=== PATIENT | female | born 1940 | race Caucasian/White ===

== ENCOUNTER 2019-07-12 05:31 | Inpatient (IN) | payer BC, OTHER ==
[~2019-07-12] VITALS: Ht 152.4 cm; Wt 67.0 kg
[~2019-07-12 05:31] MED LIST: ALPR0.5T7 PO; ATE50T GT; CLON0.1T PO; DILT120C45 PO; FLUO40CA PO; LIS20T PO; MULTLIQ36 OR; ZOLP12.564 PO
[2019-07-12 07:11] LABS: Urine Bacteria NONE SEEN /hpf (None Seen); Urine Blood 1+ /uL (Negative); Urine Specific Gravity 1.011 (1.001-1.035); Urine WBC 21 /hpf (0 - 5)
[2019-07-12] MEDS ORDERED: HYDROmorphone HCL 2 MG/ML VL IV ONE (07:30)
[2019-07-12] MEDS ORDERED: ONDANSETRON HCL 4 MG/2 ML VIAL IV ONE (07:30)
[2019-07-12 08:00] VITALS: BP 151/61
[2019-07-12] MEDS ORDERED: HYDROcodone-ACET 5/325MG TAB PO PRN (09:30)
[2019-07-12 09:41] LABS: Basophils # (auto) 0 uL; Basophils % (auto) 0.1 % (0.0-2.0); Eosinophils # (auto) 0 uL; Eosinophils % (auto) 0.1 % (0.0-7.0); Hematocrit 38.8 % (36.0-46.0); Hemoglobin 12.8 g/dL (12.2-16.2); Lymphocytes # (auto) 0.9 uL; Lymphocytes % (auto) 7.4 % (10.0-50.0); Mean Corpuscular Hemoglobin 29.4 pg (28.0-32.0); Mean Corpuscular Hgb Conc. 32.9 g/dL (32.0-36.0); Mean Corpuscular Volume 89.5 fL (80.0-100.0); Monocytes # (auto) 0.7 uL; Monocytes % (auto) 5.8 % (0.0-12.0); Neutrophils % (auto) 86.6 % (37.0-80.0); Nucleated Red Blood Cells % 0.1 %; Platelet Count (auto) 120 10^3/uL (140-450); Red Blood Cells 4.34 10^6/uL (4.0-5.20); White Blood Cell 11.5 10^3/uL (4.4-10.8)
[2019-07-12] MEDS ORDERED: ATENOLOL 25 MG TAB PO ONE (10:00)
[2019-07-12 10:05] LABS: Calcium 9.6 mg/dL (8.5-10.1); Potassium 4.1 mmol/L (3.5-5.1)
[2019-07-12 10:11] LABS: BUN/Creatinine Ratio 11.6
[2019-07-12 10:12] LABS: Cholesterol 155 mg/dL (< 200); INR 1.01 (0.9-1.15); Partial Thromboplastin Time 30.5 sec (23.64-32.05); Triglycerides 126 mg/dL (< 150)
[2019-07-12 10:14] LABS: HDL Cholesterol 32 mg/dL (40-59); LDL Cholesterol 111 mg/dL (< 100)
[2019-07-12] MEDS: cefTRIAXone 1GM/50ML D5W 50 ML IV SCH (10:41)
[2019-07-12] MEDS: SODIUM CHLORIDE 0.9% 1,000 ML IV SCH ×2 (10:41→22:20)
[2019-07-12] MEDS: FAMOTIDINE 20 MG TAB PO SCH (10:42)
[2019-07-12] MEDS: LISINOPRIL 20 MG TAB PO SCH (10:45)
[2019-07-12] MEDS ORDERED: NITROGLYCERIN 0.4 MG SL TAB SL PRN (12:00)
[2019-07-12] MEDS ORDERED: MORPHINE SULF INJ 2 MG/ML SYRINGE 1ML IV PRN (12:00)
[2019-07-12] MEDS ORDERED: IOHEXOL 300 MG/ML 100ML BOTTLE IJ ONE (12:09)
[2019-07-12] MEDS: ONDANSETRON HCL 4 MG/2 ML VIAL IV PRN (15:21)
--- NOTE | 2019-07-12 17:30 | NUR ---
Telemetry admit from ER Patient admitted to Telemetry unit after SBAR received. Patient oriented to primary RN, unit, room, bed, and unit policies regarding patient care and visiting hours. Patient now on continuous telemetry monitoring, tele box #12 and telemetry reading on arrival to unit is SR in the 70s. Bed in lowest, locked position with side rails up x2. Fall precautions in place and call light within reach. All questions and concerns addressed, patient verbalized understanding. Will continue to monitor Q1hr/PRN.
[2019-07-12 18:20] VITALS: BP 132/84
--- NOTE | 2019-07-12 18:40 | NUR ---
HEADACHE/PYREXIA Patient c/o headache pain 04/21 and also has a low grade fever of 100.4. train caller hospitalist, Kevin Victor VIDEO SURVEILLANCE TECHNICIAN, aware. New order received for Acetaminophen 500mg PO.
[2019-07-12] MEDS: ACETAMINOPHEN 500 MG TAB PO PRN (19:08)
[2019-07-12] MEDS: HYDROmorphone HCL 2 MG/ML VL IV PRN (19:16)
--- NOTE | 2019-07-12 19:30 | NUR ---
Opening Shift Note Assumed care of patient, awake and alert. No S/S of distress/SOB or pain. Visitor at bedside. Bed locked in lowest position, side rails upx2, call light within reach. Instructed on POC and to call for assist PRN, will continue to monitor for changes Q1hr and PRN.
--- NOTE | 2019-07-12 19:59 | NUR ---
IV insertion IV access obtained, via clean sterile technique by inserting 22 gauge catheter at right forearm after 1 attempt(s). IV secured properly. No trauma to site. Patient tolerated well.
[2019-07-12 21:24] VITALS: BP 145/72
[2019-07-13] MEDS: ACETAMINOPHEN 500 MG TAB PO PRN ×2 (04:00→12:09)
[2019-07-13] MEDS: ONDANSETRON HCL 4 MG/2 ML VIAL IV PRN ×2 (04:01→12:09)
[2019-07-13] MEDS: HYDROmorphone HCL 2 MG/ML VL IV PRN (04:34)
[2019-07-13 04:37] VITALS: BP 157/70
--- NOTE | 2019-07-13 05:32 | NUR ---
Rechecked temp, 99.8. Patient still complaining of headache 04/21. Tylenol and dilaudid given for pain relief. Will continue to monitor.
[2019-07-13] MEDS ORDERED: HYDR50TA15 PO (05:54)
[2019-07-13] MEDS ORDERED: ALLO100T PO (05:54)
[2019-07-13] MEDS ORDERED: FURO20TA3 PO (05:54)
[2019-07-13] MEDS ORDERED: SERT-274 PO (05:54)
[2019-07-13] MEDS ORDERED: OMEP20TA PO (05:54)
[2019-07-13 06:24] LABS: Basophils # (auto) 0 uL; Basophils % (auto) 0.2 % (0.0-2.0); Eosinophils # (auto) 0 uL; Eosinophils % (auto) 0.2 % (0.0-7.0); Hematocrit 32.9 % (36.0-46.0); Hemoglobin 11.7 g/dL (12.2-16.2); Lymphocytes # (auto) 0.7 uL; Lymphocytes % (auto) 7.6 % (10.0-50.0); Mean Corpuscular Hgb Conc. 35.5 g/dL (32.0-36.0); Mean Corpuscular Volume 87.4 fL (80.0-100.0); Monocytes # (auto) 0.8 uL; Monocytes % (auto) 8.1 % (0.0-12.0); Neutrophils % (auto) 83.9 % (37.0-80.0); Platelet Count (auto) 103 10^3/uL (140-450); Red Blood Cells 3.77 10^6/uL (4.0-5.20); Red Cell Distribution Width 13.9 % (11.8-14.3); White Blood Cell 9.6 10^3/uL (4.4-10.8)
[2019-07-13 06:40] LABS: Potassium 3.9 mmol/L (3.5-5.1)
[2019-07-13 06:47] LABS: BUN/Creatinine Ratio 11.7; Calcium 8.7 mg/dL (8.5-10.1)
--- NOTE | 2019-07-13 07:35 | NUR ---
Opening Shift Note Assumed care of patient, awake and alert. No S/S of distress/SOB or pain. Bed is in lowest position with 2x side rails up for safety and call light is within reach. Instructed on POC and to call for assist PRN, will continue to monitor for changes Q1hr and PRN.
[2019-07-13 08:00] VITALS: BP 151/61
[2019-07-13 08:52] VITALS: BP 151/61
[2019-07-13] MEDS: cefTRIAXone 1GM/50ML D5W 50 ML IV SCH (09:36)
[2019-07-13] MEDS: LISINOPRIL 20 MG TAB PO SCH (09:43)
[2019-07-13] MEDS: FAMOTIDINE 20 MG TAB PO SCH (09:43)
[2019-07-13] MEDS ORDERED: ATENOLOL 25 MG TAB PO SCH (10:00)
--- NOTE | 2019-07-13 11:03 | NUR ---
PAGED Patient requesting something for her anxiety and would like Hydralazine added to her scheduled medications as it is one of her normal home medications, "it really helps to bring my blood pressure down". Dr. Fuentes paged, awaiting call back.
[2019-07-13] MEDS: SODIUM CHLORIDE 0.9% 1,000 ML IV SCH (11:55)
[2019-07-13] MEDS ORDERED: SERTRALINE HCL 50 MG TAB PO SCH (12:00)
[2019-07-13] MEDS ORDERED: hydrALAZINE HCL 25 MG TAB PO SCH (12:00)
--- NOTE | 2019-07-13 12:15 | NUR ---
AWARE Return call from Dr. Fuentes, new orders received.
[2019-07-13 13:00] VITALS: BP 151/50
--- NOTE | 2019-07-13 15:17 | NUR ---
BERRY Per Dr. Fuentes, patient to be discharged home with berry catheter as patient is scheduled for urological procedure with Dr. Schaefer tomorrow. Patient aware, states she's "ok with that but I just don't want it to be the leg catheter".
--- NOTE | 2019-07-13 16:04 | NUR ---
Assessment Pt is a 79 yr old alert and oriented female. 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 Pt was very frustrated that she has to be discharged from our facility to go into [facility] outpatient clinic to get the procedure done. Pt seemed very distressed over the situation. SW asked how she is handling everything emotionally. Pt stated that she isnt doing very well. SW asked pt if she would like to discuss some of her thoughts with the SW. Pt declined offer. SW asked if she had family and friends that she could talk with that are supportive. Pt stated that her live-in caregiver and POA, Araceli Farris, has been very helpful and supportive. SW asked pt if she would be interested in receiving any information for support groups in the community that are going through similar situations. Pt declined. Pts caregiver is her point of contact at [phone]. Pt ambulates with the assistance of a walker. Pts caregiver helps with cooking and cleaning. Pt can independently complete ADLs using a walker and shower chair. Pt stated that Dr Ho is her Primary. Pt states that she has an advanced directive on file at [facility] naming Araceli Farris as her POA. Pts caregiver will offer transportation upon d/c. No other needs or concerns at this time Addendum: 07/13/19 at 1604 by STEVENSON RODRIGEZ Amended: Links added.
[2019-07-13 17:00] VITALS: BP 117/67
--- NOTE | 2019-07-13 17:55 | NUR ---
DISCHARGE Discharge instructions given as ordered. Encouraged to follow up with PMD and Urology, Dr. Schaefer, tomorrow for scheduled procedure at [facility]. All questions and concerns addressed, patient verbalized understanding. Medication reconciliation form completed and copy given to patient. IV removed with catheter intact and pressure dressing applied. Jansen catheter left intact per MD's recommendation. Telemetry unit returned to ICU. Patient taken to vehicle via wheelchair with all personal belongings, accompanied by staff and family member. No distress noted at time of departure.
== END 2019-07-13 17:55 | disposition home or self-care (01) | DRG 687 ==
LOC: EDBD 05:31 → ER 05:33 → TELE 05:34 → TELE-EAST 17:33
PROVIDERS: ADMIT Nurse Practitioner Acute Care; ATTEND Hospitalist
DX: C67.9 Malignant neoplasm of bladder, unspecified (principal); N39.0 Urinary tract infection, site not specified; R33.9 Retention of urine, unspecified; I10 Essential (primary) hypertension; J44.9 Chronic obstructive pulmonary disease, unspecified; G89.29 Other chronic pain; M54.5 Low back pain; R01.1 Cardiac murmur, unspecified; F32.9 Major depressive disorder, single episode, unspecified; E78.00 Pure hypercholesterolemia, unspecified; I25.10 Atherosclerotic heart disease of native coronary artery without angina pectoris; N99.3 Prolapse of vaginal vault after hysterectomy; R33.8 Other retention of urine; Z79.891 Long term (current) use of opiate analgesic; Z82.49 Family history of ischemic heart disease and other diseases of the circulatory system; Z85.51 Personal history of malignant neoplasm of bladder; Z85.828 Personal history of other malignant neoplasm of skin; Z88.5 Allergy status to narcotic agent; Z88.8 Allergy status to other drugs, medicaments and biological substances; Z79.01 Long term (current) use of anticoagulants; Z90.49 Acquired absence of other specified parts of digestive tract; Z90.89 Acquired absence of other organs
CPT/HCPCS: 36415; 71260; 74176; 80048; 80061; 81001; 83615; 84443; 85025; 85610; 85730; 87086; 87088; 87186; 93306; 96365; 96375; G0378; J0696; J2405

== ENCOUNTER 2019-08-26 16:02 | Inpatient (IN) | payer OTHER ==
[~2019-08-26] VITALS: Ht 160 cm; Wt 59.2 kg
[~2019-08-26 16:02] MED LIST changes: +ALLO100T PO; -ALPR0.5T7 PO; -FLUO40CA PO; +FURO20TA3 PO; +HYDR50TA15 PO; +OMEP20TA PO; +SERT-274 PO; -ZOLP12.564 PO
[2019-08-26] MEDS ORDERED: ACETAMINOPHEN 500 MG TAB PO ONE (16:15)
[2019-08-26 17:29] LABS: Albumin 3.6 g/dL (3.4-5.0); BUN/Creatinine Ratio 18.3; Calcium 9.2 mg/dL (8.5-10.1); Potassium 3.7 mmol/L (3.5-5.1)
[2019-08-26 17:32] LABS: Bilirubin, Total 0.8 mg/dL (0.2-1.0); Total Protein 8.5 g/dL (6.4-8.2)
[2019-08-26 17:34] LABS: Basophils # (auto) 0.1 uL; Basophils % (auto) 0.5 % (0.0-2.0); Eosinophils # (auto) 0 uL; Hematocrit 38.6 % (36.0-46.0); Hemoglobin 12.9 g/dL (12.2-16.2); Lymphocytes # (auto) 0.6 uL; Lymphocytes % (auto) 3.9 % (10.0-50.0); Mean Corpuscular Hemoglobin 29.7 pg (28.0-32.0); Mean Corpuscular Hgb Conc. 33.5 g/dL (32.0-36.0); Mean Corpuscular Volume 88.6 fL (80.0-100.0); Monocytes # (auto) 0.9 uL; Monocytes % (auto) 6.3 % (0.0-12.0); Neutrophils # (auto) 13.4 uL; Neutrophils % (auto) 89.3 % (37.0-80.0); Nucleated Red Blood Cells % 0.1 %; Platelet Count (auto) 118 10^3/uL (140-450); Red Blood Cells 4.35 10^6/uL (4.0-5.20)
[2019-08-26 17:51] LABS: Magnesium 1.9 mg/dL (1.6-2.6)
[2019-08-26 21:28] LABS: Urine Bacteria MANY /hpf (None Seen); Urine Blood Negative /uL (Negative); Urine Mucus FEW (None Seen); Urine Specific Gravity 1.017 (1.001-1.035); Urine WBC 10 /hpf (0 - 5)
[2019-08-26] MEDS ORDERED: HYDROcodone-ACET 5/325MG TAB PO PRN (22:30)
[2019-08-26] MEDS ORDERED: LEVOFLOXACIN 250MG 50 ML IV ONE (22:30)
--- NOTE | 2019-08-26 23:09 | NUR ---
Admission Note Pt admitted to room 204 in stable condition. No s/s of any distress noted at this time. Pt oriented to room and procedures. Pt also oriented to call light. Pt verbalizes understanding and demonstrates use of call light. Pt states that she is hard of hearing and does not have hearing aids. She further states that she does not have her glasses here with her. Pt in ISO for hx ESBL urine and is with berry cath. MORTGAGE FIELD INSPECTOR reported that it was placed for bladder distention/ urinary retention. Bed is low, wheels are locked, and call light is with in reach. Bed alarm is set for pt safety.
[2019-08-27] MEDS ORDERED: LEVOFLOXACIN 250MG 50 ML IV SCH
[2019-08-27] MEDS: TEMAZEPAM 15 MG CAP PO PRN (00:55)
[2019-08-27] MEDS: ONDANSETRON HCL 4 MG/2 ML VIAL IV PRN ×3 (00:55→15:37)
[2019-08-27] MEDS: ACETAMINOPHEN 325 MG TAB PO PRN ×2 (00:56→18:52)
--- NOTE | 2019-08-27 00:56 | NUR ---
Pt reporting pain 10/10, left flank pain. Pt has Tylenol ordered and will call Hospitalist and notify of pt pain.
[2019-08-27 05:00] VITALS: BP 129/52
[2019-08-27 05:18] LABS: Basophils # (auto) 0 uL; Basophils % (auto) 0.1 % (0.0-2.0); Eosinophils # (auto) 0 uL; Eosinophils % (auto) 0.1 % (0.0-7.0); Hematocrit 35.7 % (36.0-46.0); Hemoglobin 12.1 g/dL (12.2-16.2); Lymphocytes # (auto) 1.1 uL; Lymphocytes % (auto) 9.3 % (10.0-50.0); Mean Corpuscular Hgb Conc. 33.8 g/dL (32.0-36.0); Mean Corpuscular Volume 88.7 fL (80.0-100.0); Monocytes # (auto) 0.9 uL; Monocytes % (auto) 8.1 % (0.0-12.0); Neutrophils # (auto) 9.6 uL; Neutrophils % (auto) 82.4 % (37.0-80.0); Platelet Count (auto) 95 10^3/uL (140-450); Red Blood Cells 4.03 10^6/uL (4.0-5.20); Red Cell Distribution Width 14.5 % (11.8-14.3); White Blood Cell 11.7 10^3/uL (4.4-10.8)
[2019-08-27] MEDS ORDERED: [UNRECOGNIZED DRUG - CODE] PO (05:31)
--- NOTE | 2019-08-27 05:32 | NUR ---
Pt is c/o pain and states that she takes Oxycodone 10/325mg PO Q6hrs prn at home. Will call hospitalist.
[2019-08-27 05:33] LABS: BUN/Creatinine Ratio 19.9; Calcium 9.1 mg/dL (8.5-10.1); Potassium 3.9 mmol/L (3.5-5.1)
[2019-08-27] MEDS: PANTOPRAZOLE 40 MG TAB PO SCH (06:14)
[2019-08-27] MEDS: OXYCODONE W/ ACETAMINOPHEN 5/325MG TABLET PO PRN ×4 (06:40→20:49)
[2019-08-27] MEDS ORDERED: PANTOPRAZOLE 40 MG TAB PO SCH (07:00)
--- NOTE | 2019-08-27 08:00 | NUR ---
Opening Shift Note Assumed care of patient, awake and alert. No S/S of distress/SOB, abdominal pain /10. Instructed on POC and to call for assist PRN, will continue to monitor for changes Q1hr and PRN.
[2019-08-27 08:39] VITALS: BP 119/56
[2019-08-27] MEDS: DILTIAZEM HCL 120MG ER CAP PO SCH (09:57)
[2019-08-27] MEDS: ATENOLOL 50 MG TAB PO SCH (09:57)
[2019-08-27] MEDS: ALLOPURINOL 100 MG TAB PO SCH (09:58)
[2019-08-27] MEDS ORDERED: hydrALAZINE HCL 25 MG TAB PO SCH (10:00)
[2019-08-27] MEDS ORDERED: FUROSEMIDE 20 MG TAB PO SCH (10:00)
[2019-08-27] MEDS: SERTRALINE HCL 50 MG TAB PO SCH (10:17)
[2019-08-27] MEDS ORDERED: ERTAPENEM SOD INJ 1 GM in SODIUM CHL 0.9% 50 ML IV SCH (12:00)
[2019-08-27] MEDS ORDERED: SOD CHL 0.45% 1,000 ML IV ONE (12:00)
[2019-08-27] MEDS: hydrALAZINE HCL 25 MG TAB PO SCH ×2 (12:15→22:18)
[2019-08-27 13:00] VITALS: BP 93/42
[2019-08-27] MEDS: ERTAPENEM IV SCH (13:32)
[2019-08-27] MEDS: NS 0.9% IV SCH (13:32)
[2019-08-27 16:38] VITALS: BP 154/67
--- NOTE | 2019-08-27 19:50 | NUR ---
Opening Shift Note Assumed care of patient, awake and alert. No S/S of distress or SOB. Instructed on POC and to call for assist PRN. Bed locked in lowest position, bed rails up X2, call light within reach, fall precautions in place. Will continue to monitor for changes Q1hr and PRN. Signed: 08/27/19 at 2358 by JASWANT SHEEHAN SN <Co-Signature Required> Co-Signed: 08/27/19 at 8 by KENIA GUTIERREZ OCA, RN
[2019-08-27 22:00] VITALS: BP 116/54
[2019-08-27] MEDS: SENNA 8.6 MG TAB PO SCH (22:17)
[2019-08-28] MEDS: ONDANSETRON HCL 4 MG/2 ML VIAL IV PRN ×3 (00:45→23:58)
[2019-08-28] MEDS: OXYCODONE W/ ACETAMINOPHEN 5/325MG TABLET PO PRN ×4 (03:48→23:58)
[2019-08-28 05:00] VITALS: BP 122/47
[2019-08-28 05:32] LABS: Basophils # (auto) 0 uL; Basophils % (auto) 0.1 % (0.0-2.0); Eosinophils # (auto) 0 uL; Eosinophils % (auto) 0.1 % (0.0-7.0); Hemoglobin 11.5 g/dL (12.2-16.2); Lymphocytes # (auto) 0.7 uL; Lymphocytes % (auto) 6.5 % (10.0-50.0); Mean Corpuscular Hemoglobin 29.8 pg (28.0-32.0); Mean Corpuscular Hgb Conc. 33.8 g/dL (32.0-36.0); Mean Corpuscular Volume 88.1 fL (80.0-100.0); Monocytes # (auto) 1.1 uL; Monocytes % (auto) 9.9 % (0.0-12.0); Neutrophils # (auto) 9.2 uL; Neutrophils % (auto) 83.4 % (37.0-80.0); Platelet Count (auto) 98 10^3/uL (140-450); Red Blood Cells 3.86 10^6/uL (4.0-5.20); Red Cell Distribution Width 14.4 % (11.8-14.3); White Blood Cell 11.1 10^3/uL (4.4-10.8)
[2019-08-28 06:10] LABS: BUN/Creatinine Ratio 18.9; Calcium 8.8 mg/dL (8.5-10.1); Potassium 3.3 mmol/L (3.5-5.1)
[2019-08-28] MEDS: PANTOPRAZOLE 40 MG TAB PO SCH (06:29)
--- NOTE | 2019-08-28 07:30 | NUR ---
Opening Shift Note Assumed care of patient, awake and alert. No S/S of distress or SOB. Instructed on POC and to call for assist PRN. Bed locked in lowest position, bed rails up X2, call light within reach, fall precautions in place. Will continue to monitor for changes Q1hr and PRN.
--- NOTE | 2019-08-28 08:30 | NUR ---
PATIENT REFUSING AMBULATION WITH PT. EDUCATED PATIENT IMPORTANCE OF AMBULATING. PATIENT VERBALIZED UNDERSTANDING. PATIENT STILL REFUSING Addendum: 08/28/19 at 1315 by LETICIA WOOD RN RN Amended: Links added.
[2019-08-28 09:00] VITALS: BP 132/55
[2019-08-28] MEDS: ERTAPENEM IV SCH (09:25)
[2019-08-28] MEDS: NS 0.9% IV SCH (09:25)
[2019-08-28] MEDS: DILTIAZEM HCL 120MG ER CAP PO SCH (09:25)
[2019-08-28] MEDS: ATENOLOL 50 MG TAB PO SCH (09:26)
[2019-08-28] MEDS: hydrALAZINE HCL 25 MG TAB PO SCH ×2 (09:26→22:50)
[2019-08-28] MEDS: SERTRALINE HCL 50 MG TAB PO SCH (09:27)
[2019-08-28] MEDS: ALLOPURINOL 100 MG TAB PO SCH (09:29)
[2019-08-28] MEDS ORDERED: ENOXAPARIN SOD 40 MG/0.4 ML SYRINGE SC SCH (10:00)
--- NOTE | 2019-08-28 10:53 | NUR ---
ATTEMPTED PT EVAL BUT PT REFUSED. WILL TRY AGAIN LATER
[2019-08-28] MEDS ORDERED: PROMETHAZINE HCL 25 MG/ML 1ML IV PRN (11:30)
--- NOTE | 2019-08-28 12:11 | NUR ---
Attempted PT eval again, pt refused x2 today, will try again tomorrow
[2019-08-28 13:00] VITALS: BP 93/38
[2019-08-28] MEDS: ACETAMINOPHEN 325 MG TAB PO PRN (15:00)
[2019-08-28 17:00] VITALS: BP 127/57
[2019-08-28 21:39] VITALS: BP 128/51
[2019-08-28] MEDS: SENNA 8.6 MG TAB PO SCH ×2 (22:00→22:50)
[2019-08-29] MEDS: TEMAZEPAM 15 MG CAP PO PRN ×2 (00:35→23:41)
[2019-08-29 04:34] VITALS: BP 103/51
[2019-08-29] MEDS: PANTOPRAZOLE 40 MG TAB PO SCH (06:09)
[2019-08-29 09:00] VITALS: BP 136/74
[2019-08-29] MEDS: SERTRALINE HCL 50 MG TAB PO SCH (10:44)
[2019-08-29] MEDS: ERTAPENEM IV SCH (10:44)
[2019-08-29] MEDS: NS 0.9% IV SCH (10:44)
[2019-08-29] MEDS: ALLOPURINOL 100 MG TAB PO SCH (10:45)
[2019-08-29] MEDS: ATENOLOL 50 MG TAB PO SCH (10:45)
[2019-08-29] MEDS: DILTIAZEM HCL 120MG ER CAP PO SCH (10:45)
[2019-08-29] MEDS: hydrALAZINE HCL 25 MG TAB PO SCH ×2 (10:46→21:59)
[2019-08-29] MEDS: OXYCODONE W/ ACETAMINOPHEN 5/325MG TABLET PO PRN ×3 (10:46→19:57)
[2019-08-29] MEDS: ONDANSETRON HCL 4 MG/2 ML VIAL IV PRN ×3 (11:12→19:57)
--- NOTE | 2019-08-29 11:31 | NUR ---
PATIENT REFUSING AMBULATION WITH PT. EDUCATED PATIENT IMPORTANCE OF AMBULATING. PATIENT VERBALIZED UNDERSTANDING. PATIENT STILL REFUSING Addendum: 08/29/19 at 1131 by LETICIA WOOD RN RN Amended: Links added.
--- NOTE | 2019-08-29 12:05 | NUR ---
LAB RECEIVED PHONE CALL FROM MICROBIOLOGY RE: PATIENT POSITIVE FOR ESBL ECOLI IN THE URINE. WILL NOTIFY
--- NOTE | 2019-08-29 12:30 | NUR ---
PATIENT REFUSING AMBULATION WITH PT. EDUCATED PATIENT IMPORTANCE OF AMBULATING. PATIENT VERBALIZED UNDERSTANDING. PATIENT STILL REFUSING Addendum: 08/29/19 at 1558 by LETICIA WOOD RN RN Amended: Links added.
[2019-08-29 13:00] VITALS: BP 117/45
--- NOTE | 2019-08-29 13:20 | NUR ---
MD ROUNDS DR BATISTA DISCUSSING POC WITH PATIENT. NEW ORDERS RECEIVED/CARRIED OUT. WILL CONTINUE TO MONITOR
[2019-08-29] MEDS ORDERED: POTASSIUM EFFERVESENT TAB 25 MEQ PO ONE (14:15)
--- NOTE | 2019-08-29 15:20 | NUR ---
IV removal IV DC'd with clean sterile technique, catheter fully intact. Pressure dressing applied to site. Patient tolerated well. IV insertion IV access obtained, via clean sterile technique by inserting 22 gauge catheter at [facility] after 1 attempt(s). IV secured properly. No trauma to site. Patient tolerated well.
--- NOTE | 2019-08-29 15:59 | NUR ---
PATIENT REFUSING AMBULATION WITH PT. EDUCATED PATIENT IMPORTANCE OF AMBULATING. PATIENT VERBALIZED UNDERSTANDING. PATIENT STILL REFUSING Addendum: 08/29/19 at 1559 by LETICIA WOOD RN RN Amended: Links added.
[2019-08-29 17:00] VITALS: BP 139/96
[2019-08-29 21:35] VITALS: BP 155/72
[2019-08-29] MEDS: SENNA 8.6 MG TAB PO SCH (21:59)
[2019-08-29] MEDS: POTASSIUM EFFERVESENT TAB 25 MEQ PO SCH (21:59)
[2019-08-29] MEDS: CHOLESTYRAMINE 4 GM POWDER PO SCH (23:40)
[2019-08-30] MEDS: OXYCODONE W/ ACETAMINOPHEN 5/325MG TABLET PO PRN ×2 (04:00→10:45)
[2019-08-30 04:30] VITALS: BP 163/73
[2019-08-30 05:05] LABS: Basophils # (auto) 0 uL; Basophils % (auto) 0.2 % (0.0-2.0); Eosinophils # (auto) 0.1 uL; Eosinophils % (auto) 1.4 % (0.0-7.0); Hematocrit 37.2 % (36.0-46.0); Hemoglobin 12.6 g/dL (12.2-16.2); Lymphocytes # (auto) 1.2 uL; Lymphocytes % (auto) 13.1 % (10.0-50.0); Mean Corpuscular Hemoglobin 30.2 pg (28.0-32.0); Mean Corpuscular Volume 88.9 fL (80.0-100.0); Monocytes # (auto) 0.8 uL; Monocytes % (auto) 8.8 % (0.0-12.0); Neutrophils % (auto) 76.5 % (37.0-80.0); Nucleated Red Blood Cells % 0.1 %; Platelet Count (auto) 146 10^3/uL (140-450); Red Blood Cells 4.18 10^6/uL (4.0-5.20); Red Cell Distribution Width 14.1 % (11.8-14.3); White Blood Cell 9.1 10^3/uL (4.4-10.8)
[2019-08-30 05:18] LABS: INR 1.13 (0.9-1.15); Partial Thromboplastin Time 33.5 sec (23.64-32.05)
[2019-08-30 05:24] LABS: Calcium 9.3 mg/dL (8.5-10.1); Potassium 4.1 mmol/L (3.5-5.1)
[2019-08-30 05:27] LABS: BUN/Creatinine Ratio 12.7
[2019-08-30] MEDS: PANTOPRAZOLE 40 MG TAB PO SCH (05:56)
--- NOTE | 2019-08-30 07:30 | NUR ---
Opening Shift Note RECEIVED REPORT FROM NOC RN. Assumed care of patient, awake and alert. No S/S of distress/SOB or pain. BED IN LOWEST, LOCKED POSITION WITH SIDERAILS UP x2 AND CALL LIGHT WITHIN REACH. Instructed on POC and to call for assist PRN, will continue to monitor for changes Q1hr and PRN.
[2019-08-30 09:00] VITALS: BP 145/58
--- NOTE | 2019-08-30 09:27 | NUR ---
HUGO Quinonez from [facility] called and stated they will set up IV infusion but pt will need [facility] .
[2019-08-30] MEDS ORDERED: ERTAPENEM GM in SODIUM CHL 0.9% 50 ML IV SCH ×4 (10:00)
[2019-08-30] MEDS: POTASSIUM EFFERVESENT TAB 25 MEQ PO SCH (10:15)
[2019-08-30] MEDS: DILTIAZEM HCL 120MG ER CAP PO SCH (10:15)
[2019-08-30] MEDS: SERTRALINE HCL 50 MG TAB PO SCH (10:16)
[2019-08-30] MEDS: hydrALAZINE HCL 25 MG TAB PO SCH (10:16)
[2019-08-30] MEDS: ATENOLOL 50 MG TAB PO SCH (10:16)
[2019-08-30] MEDS: ALLOPURINOL 100 MG TAB PO SCH (10:16)
[2019-08-30] MEDS: ONDANSETRON HCL 4 MG/2 ML VIAL IV PRN (10:45)
[2019-08-30] MEDS: CHOLESTYRAMINE 4 GM POWDER PO SCH (11:29)
--- NOTE | 2019-08-30 11:46 | NUR ---
Nutrition Assessment Notes please see attached link for complete assessment Est. Needs based on BW (59 kg): 8159-4438 kcal (25-30 kcal/kgBW), 59-64 gms pro (1.0-1.1 gms/kgBW). Will continue to monitor pertinent labs and reassess nutrient need prn Addendum: 08/30/19 at [address] Amended: Links added.
--- NOTE | 2019-08-30 12:04 | NUR ---
D/C Planning Per consult for home health physical therapy and IV abx ertapenem 1 gm daily via MID line for 14 days. DX ESBL Ecoli. [employer] Reading Teacher Arminda will be working on IV abx. Contact [facility] Ph:) Fax:) faxed medical records. Per intake Vania from [facility] referral has been received and patient will be seen tomorrow. Vania advised me infusion company has contact her and will be delivering medication to patients home. Provided Patient with information regarding home health iv abx and physical therapy. Patient states her friend Araceli BrodyNoe will help her with IV abx. Patient verbalize understanding d/c plan. Informed JAKE Schaefer. Addendum: 08/30/19 at 1227 by ЮЛИЯ HEBERT Amended: Links added.
[2019-08-30 13:00] VITALS: BP 121/57
--- NOTE | 2019-08-30 13:25 | NUR ---
PICC NURSE TO PLACE MIDLINE FOR HOME ANTIBIOTICS.
--- NOTE | 2019-08-30 14:30 | NUR ---
Midline Placement: Patient educated on need for midline placement. All risks and benefits explained and all questions and concerns addresses prior to procedure. 18g/10cm midline inserted via left cephalic vein using Ultrasound. Sterile technique utilized. Blood return obtained from lumen and flushed easily with NS using proper technique. Midline secured with saline lock; biodisc and occlusive dressing applied. Primary RN notified. Midline lot #[id number]
--- NOTE | 2019-08-30 14:34 | NUR ---
assessment Patient is a 79 year old female who is alert and oriented. Patients cognitive abilities are intact. Prior to admission patient lived home with her friend and caregiver and functioned with assistance. Per patient she will return home to her prior living arrangements post discharge and her caregiver Araceli will transport her home. Patient is aware that she needs home IV ABX. Araceli patients caregiver can be taught to give ABX. Patients PCP is Dr Schaefer. Patient feels safe returning home on discharge. Arminda machine adjuster leader case trim and Falguni KHAN1 will satisfy ABX order. I informed patient she has a right to speak to a vp digital marketing social media and crm regarding all care. I informed patient she has a right to participate in any and all discharge planning. Patient does not have a POA and advanced directive. I have offered patient information on POA and advanced directives. I informed the patient the advantages and benefits of having an Advanced Directive. Patient verbalized understanding and agreed to discharge plan. Addendum: 08/30/19 at 1438 by Bia RODRIGEZ Amended: Links added.
--- NOTE | 2019-08-30 14:48 | NUR ---
[facility] infusion will be working on IV abxs
[2019-08-30 15:43] VITALS: BP 121/57
== END 2019-08-30 17:15 | disposition home health service (06) | DRG 690 ==
LOC: ER 16:02 → EDBD 16:02 → EDUNIT# 16:02 → OVERFLOW 16:03 → CENTRAL 23:06
PROVIDERS: ADMIT Nurse Practitioner; ATTEND Hospitalist
DX: N39.0 Urinary tract infection, site not specified (principal); F11.20 Opioid dependence, uncomplicated; Z16.12 Extended spectrum beta lactamase (ESBL) resistance; K52.1 Toxic gastroenteritis and colitis; R65.10 Systemic inflammatory response syndrome (SIRS) of non-infectious origin without acute organ dysfunction; N18.3 Chronic kidney disease, stage 3 (moderate); G89.4 Chronic pain syndrome; B96.20 Unspecified Escherichia coli [E. coli] as the cause of diseases classified elsewhere; N31.9 Neuromuscular dysfunction of bladder, unspecified; R33.8 Other retention of urine; T36.95XA Adverse effect of unspecified systemic antibiotic, initial encounter; I12.9 Hypertensive chronic kidney disease with stage 1 through stage 4 chronic kidney disease, or unspecified chronic kidney disease; Z85.51 Personal history of malignant neoplasm of bladder; Z90.49 Acquired absence of other specified parts of digestive tract; Z90.710 Acquired absence of both cervix and uterus; Z88.8 Allergy status to other drugs, medicaments and biological substances; Z88.6 Allergy status to analgesic agent; Y92.89 Other specified places as the place of occurrence of the external cause
CPT/HCPCS: 36415; 51702; 74176; 80048; 80053; 81001; 83605; 83690; 83735; 84484; 85025; 85610; 85730; 87040; 87086; 87088; 87186; 93005; G0378; J1335; J2405

== ENCOUNTER → 2019-10-22 | Outpatient (CLI) | payer MEDICARE, OTHER ==
[~2019-10-22] MED LIST changes: +CLON-818 PO; -CLON0.1T PO; +OXY10CRT PO; +PROM25TA5 PO
[2019-10-22 10:02] LABS: Urine Bacteria NONE SEEN /hpf (None Seen); Urine Blood Negative /uL (Negative); Urine Budding Yeast OCCASIONAL /hpf (None Seen); Urine Hyaline Cast FEW /lpf (0 - 2); Urine Mucus FEW (None Seen); Urine Specific Gravity 1.012 (1.001-1.035); Urine WBC 55 /hpf (0 - 5)
== END | disposition home or self-care (01) ==
LOC: LAB 09:43
PROVIDERS: ATTEND Nurse Practitioner
DX: N39.0 Urinary tract infection, site not specified (principal)
CPT/HCPCS: 81001; 87086; 87088

== ENCOUNTER → 2019-11-01 | Outpatient (CLI) | payer OTHER ==
[2019-11-01 13:49] LABS: Basophils # (auto) 0 uL; Basophils % (auto) 0.3 % (0.0-2.0); Eosinophils # (auto) 0.3 uL; Eosinophils % (auto) 6.3 % (0.0-7.0); Hemoglobin 11.9 g/dL (12.2-16.2); Lymphocytes # (auto) 1.4 uL; Lymphocytes % (auto) 30.3 % (10.0-50.0); Mean Corpuscular Hemoglobin 29.9 pg (28.0-32.0); Mean Corpuscular Hgb Conc. 33.8 g/dL (32.0-36.0); Mean Corpuscular Volume 88.3 fL (80.0-100.0); Monocytes # (auto) 0.3 uL; Monocytes % (auto) 7.2 % (0.0-12.0); Neutrophils # (auto) 2.6 uL; Neutrophils % (auto) 55.9 % (37.0-80.0); Nucleated Red Blood Cells % 0.1 %; Platelet Count (auto) 121 10^3/uL (140-450); Red Blood Cells 3.97 10^6/uL (4.0-5.20); Red Cell Distribution Width 14.7 % (11.8-14.3); White Blood Cell 4.7 10^3/uL (4.4-10.8)
[2019-11-01 14:51] LABS: Albumin 3.7 g/dL (3.4-5.0); BUN/Creatinine Ratio 14.3; Calcium 8.9 mg/dL (8.5-10.1); Potassium 4.9 mmol/L (3.5-5.1)
[2019-11-01 14:59] LABS: Bilirubin, Total 0.2 mg/dL (0.2-1.0); Total Protein 7.8 g/dL (6.4-8.2)
== END | disposition home or self-care (01) ==
LOC: LAB 13:25
PROVIDERS: ATTEND Nurse Practitioner
DX: Z00.00 Encounter for general adult medical examination without abnormal findings (principal)
CPT/HCPCS: 36415; 80053; 82270; 85025

== ENCOUNTER → 2020-08-15 | Outpatient (CLI) | payer OTHER ==
[2020-08-15 14:11] LABS: Basophils # (auto) 0 10 ^3/uL (0-0.2); Basophils % (auto) 0.2 % (0.0-2.0); Eosinophils # (auto) 0.2 10 ^3/uL (0-0.8); Eosinophils % (auto) 2.6 % (0.0-7.0); Hematocrit 39.3 % (36.0-46.0); Hemoglobin 13.1 g/dL (12.2-16.2); Lymphocytes # (auto) 1.4 10 ^3/uL (0.4-5.4); Lymphocytes % (auto) 20.5 % (10.0-50.0); Mean Corpuscular Hemoglobin 30.8 pg (28.0-32.0); Mean Corpuscular Hgb Conc. 33.4 g/dL (32.0-36.0); Mean Corpuscular Volume 92.2 fL (80.0-100.0); Monocytes # (auto) 0.5 10 ^3/uL (0-1.3); Monocytes % (auto) 7.8 % (0.0-12.0); Neutrophils # (auto) 4.7 10 ^3/uL (1.6-8.6); Neutrophils % (auto) 68.9 % (37.0-80.0); Nucleated Red Blood Cells % 0.1 %; Platelet Count (auto) 143 10^3/uL (140-450); Red Blood Cells 4.27 10^6/uL (4.0-5.20); White Blood Cell 6.8 10^3/uL (4.4-10.8)
[2020-08-15 14:49] LABS: Albumin 4.4 g/dL (3.4-5.0); Potassium 4.1 mmol/L (3.5-5.1)
[2020-08-15 14:52] LABS: BUN/Creatinine Ratio 13.8; Bilirubin, Total 0.6 mg/dL (0.2-1.0); Total Protein 9.1 g/dL (6.4-8.2)
[2020-08-15 14:57] LABS: Folate (Folic Acid) > 24.00 ng/mL (5.38-24)
== END | disposition home or self-care (01) ==
LOC: LAB 13:50
PROVIDERS: ATTEND Student in an Organized Health Care Education/Training Program
DX: R53.83 Other fatigue (principal); R20.2 Paresthesia of skin; M25.50 Pain in unspecified joint
CPT/HCPCS: 36415; 80053; 82607; 82746; 83036; 84443; 85025

== ENCOUNTER → 2020-12-11 | Outpatient (CLI) | payer OTHER | END | disposition home or self-care (01) | LOC: LAB 13:42 | PROVIDERS: ATTEND Internal Medicine Rheumatology | DX: Z11.59 Encounter for screening for other viral diseases (principal); Z11.1 Encounter for screening for respiratory tuberculosis; M06.4 Inflammatory polyarthropathy | CPT/HCPCS: 36415; 85652; 86141; 86200 ==

== ENCOUNTER → 2021-01-18 | Outpatient (CLI) | payer OTHER | END | disposition home or self-care (01) | LOC: LAB 16:37 | PROVIDERS: ATTEND Student in an Organized Health Care Education/Training Program | DX: N39.0 Urinary tract infection, site not specified (principal) | CPT/HCPCS: 87086 ==

== ENCOUNTER 2021-01-25 15:41 | Observation (INO) | payer OTHER ==
[~2021-01-25] VITALS: Ht 154.9 cm; Wt 59.9 kg
[~2021-01-25 15:41] MED LIST changes: -ATE50T GT; +ATE50T PO; -SERT-274 PO; +SERT50TA19 PO
[2021-01-25 17:03] LABS: Basophils # (auto) 0 10 ^3/uL (0-0.2); Basophils % (auto) 0.1 % (0.0-2.0); Eosinophils # (auto) 0 10 ^3/uL (0-0.8); Eosinophils % (auto) 0.5 % (0.0-7.0); Hemoglobin 12.6 g/dL (12.2-16.2); Lymphocytes # (auto) 0.9 10 ^3/uL (0.4-5.4); Lymphocytes % (auto) 9.5 % (10.0-50.0); Mean Corpuscular Hgb Conc. 34.1 g/dL (32.0-36.0); Mean Corpuscular Volume 87.7 fL (80.0-100.0); Monocytes # (auto) 0.4 10 ^3/uL (0-1.3); Monocytes % (auto) 3.7 % (0.0-12.0); Neutrophils # (auto) 8.4 10 ^3/uL (1.6-8.6); Neutrophils % (auto) 86.2 % (37.0-80.0); Nucleated Red Blood Cells % 0.6 %; Platelet Count (auto) 169 10^3/uL (140-450); Red Blood Cells 4.22 10^6/uL (4.0-5.20); Red Cell Distribution Width 15.4 % (11.8-14.3); White Blood Cell 9.8 10^3/uL (4.4-10.8)
[2021-01-25 17:16] LABS: INR 1.24 (0.9-1.15)
[2021-01-25 17:28] LABS: Albumin 3.9 g/dL (3.4-5.0); BUN/Creatinine Ratio 14.9; Calcium 9.9 mg/dL (8.5-10.1)
[2021-01-25 17:31] LABS: Bilirubin, Total 0.6 mg/dL (0.2-1.0); Total Protein 8.4 g/dL (6.4-8.2)
[2021-01-25] MEDS ORDERED: HYDROmorphone HCL 2 MG/ML VL IV ONE ×2 (18:00→22:00)
[2021-01-25] MEDS ORDERED: ONDANSETRON HCL 4 MG/2 ML VIAL IV ONE (18:00)
[2021-01-25] MEDS ORDERED: SODIUM CHLORIDE 0.9% 1,000 ML IV ONE (18:00)
[2021-01-25 18:47] LABS: Urine Bacteria FEW /hpf (None Seen); Urine Blood Negative /uL (Negative); Urine Specific Gravity 1.021 (1.001-1.035); Urine WBC 102 /hpf (0 - 5)
[2021-01-25] MEDS ORDERED: PIPERACILLIN-TAZOB 3.375GM 100 ML IV ONE (20:30)
[2021-01-26] MEDS ORDERED: ONDANSETRON HCL 4 MG/2 ML VIAL IV PRN (01:00)
[2021-01-26] MEDS ORDERED: HYDROcodone-ACET 5/325MG TAB PO PRN (01:00)
[2021-01-26] MEDS ORDERED: ACETAMINOPHEN 325 MG TAB PO PRN (01:00)
[2021-01-26] MEDS ORDERED: NITROGLYCERIN 0.4 MG SL TAB SL PRN (01:00)
[2021-01-26] MEDS: SODIUM CHLORIDE 0.9% 1,000 ML IV SCH ×2 (01:03→18:32)
[2021-01-26 02:24] VITALS: BP 151/61
[2021-01-26] MEDS: HYDROmorphone HCL 2 MG/ML VL IV PRN ×3 (04:02→14:15)
[2021-01-26] MEDS: metroNIDAZOLE 500MG/100ML 100 ML IV SCH ×3 (05:26→21:23)
[2021-01-26] MEDS ORDERED: FOLI1TAB6 PO (05:40)
[2021-01-26] MEDS ORDERED: PERCOT PO (05:40)
[2021-01-26] MEDS ORDERED: PROC10TA2 PO (05:40)
[2021-01-26] MEDS ORDERED: PRED10TA PO (05:40)
[2021-01-26] MEDS ORDERED: METH2.5T PO (05:40)
[2021-01-26] MEDS: PIPERACILLIN-TAZOB 3.375GM 100 ML IV SCH ×3 (06:32→18:32)
[2021-01-26 06:34] VITALS: BP 141/58
[2021-01-26] MEDS: FAMOTIDINE (10MG/ML) 2ML VL IV SCH ×2 (08:31→21:23)
[2021-01-26 09:13] VITALS: BP 124/64
[2021-01-26 11:57] LABS: Basophils # (auto) 0 10 ^3/uL (0-0.2); Basophils % (auto) 0.2 % (0.0-2.0); Eosinophils # (auto) 0 10 ^3/uL (0-0.8); Eosinophils % (auto) 0.7 % (0.0-7.0); Hematocrit 34.6 % (36.0-46.0); Hemoglobin 11.6 g/dL (12.2-16.2); Lymphocytes # (auto) 0.9 10 ^3/uL (0.4-5.4); Lymphocytes % (auto) 13.6 % (10.0-50.0); Mean Corpuscular Hemoglobin 29.6 pg (28.0-32.0); Mean Corpuscular Hgb Conc. 33.5 g/dL (32.0-36.0); Mean Corpuscular Volume 88.3 fL (80.0-100.0); Monocytes # (auto) 0.4 10 ^3/uL (0-1.3); Monocytes % (auto) 5.5 % (0.0-12.0); Neutrophils # (auto) 5.5 10 ^3/uL (1.6-8.6); Nucleated Red Blood Cells % 0.2 %; Platelet Count (auto) 140 10^3/uL (140-450); Red Blood Cells 3.92 10^6/uL (4.0-5.20); Red Cell Distribution Width 15.4 % (11.8-14.3); White Blood Cell 6.9 10^3/uL (4.4-10.8)
[2021-01-26 12:18] LABS: Albumin 3.5 g/dL (3.4-5.0); Calcium 9.5 mg/dL (8.5-10.1)
[2021-01-26 12:23] LABS: BUN/Creatinine Ratio 15.4; Bilirubin, Total 0.6 mg/dL (0.2-1.0); Total Protein 7.3 g/dL (6.4-8.2)
[2021-01-26 12:47] VITALS: BP 116/46
[2021-01-26 16:29] VITALS: BP 115/47
[2021-01-26] MEDS: OXYCODONE W/ ACETAMINOPHEN 5/325MG TABLET PO PRN (21:24)
[2021-01-26 23:13] VITALS: BP 117/50
[2021-01-27] MEDS: PIPERACILLIN-TAZOB 3.375GM 100 ML IV SCH ×3 (00:05→12:32)
[2021-01-27] MEDS: OXYCODONE W/ ACETAMINOPHEN 5/325MG TABLET PO PRN ×2 (01:51→08:24)
[2021-01-27 05:46] VITALS: BP 131/64
[2021-01-27 08:05] LABS: Basophils # (auto) 0 10 ^3/uL (0-0.2); Basophils % (auto) 0.4 % (0.0-2.0); Eosinophils # (auto) 0.1 10 ^3/uL (0-0.8); Eosinophils % (auto) 2.4 % (0.0-7.0); Hematocrit 32.8 % (36.0-46.0); Hemoglobin 11.4 g/dL (12.2-16.2); Lymphocytes # (auto) 1.2 10 ^3/uL (0.4-5.4); Lymphocytes % (auto) 23.7 % (10.0-50.0); Mean Corpuscular Hemoglobin 30.7 pg (28.0-32.0); Mean Corpuscular Hgb Conc. 34.8 g/dL (32.0-36.0); Mean Corpuscular Volume 88.1 fL (80.0-100.0); Monocytes # (auto) 0.5 10 ^3/uL (0-1.3); Monocytes % (auto) 9.4 % (0.0-12.0); Neutrophils # (auto) 3.1 10 ^3/uL (1.6-8.6); Neutrophils % (auto) 64.1 % (37.0-80.0); Nucleated Red Blood Cells % 0.8 %; Platelet Count (auto) 138 10^3/uL (140-450); Red Blood Cells 3.72 10^6/uL (4.0-5.20); Red Cell Distribution Width 15.7 % (11.8-14.3); White Blood Cell 4.9 10^3/uL (4.4-10.8)
[2021-01-27] MEDS: FAMOTIDINE (10MG/ML) 2ML VL IV SCH (08:23)
[2021-01-27 08:38] LABS: Potassium 4.2 mmol/L (3.5-5.1)
[2021-01-27 09:00] VITALS: BP 152/63
[2021-01-27] MEDS ORDERED: cefTRIAXone 1GM/50ML D5W 50 ML IV SCH (09:00)
[2021-01-27 09:05] LABS: Albumin 3.3 g/dL (3.4-5.0); Bilirubin, Total 0.5 mg/dL (0.2-1.0); Calcium 9.5 mg/dL (8.5-10.1); Total Protein 7.1 g/dL (6.4-8.2)
[2021-01-27] MEDS: HYDROmorphone HCL 2 MG/ML VL IV PRN (09:34)
[2021-01-27] MEDS: SODIUM CHLORIDE 0.9% 1,000 ML IV SCH (12:30)
[2021-01-27 12:57] VITALS: BP 130/58
[2021-01-27] MEDS ORDERED: MORPHINE SULF INJ 2 MG/ML SYRINGE 1ML IV PRN (14:30)
[2021-01-27] MEDS ORDERED: NITROGLYCERIN 0.4 MG SL TAB SL PRN (14:30)
[2021-01-27 17:00] VITALS: BP 143/67
== END 2021-01-27 17:52 | disposition home or self-care (01) ==
LOC: EDBD 15:41 → EDUNIT# 15:41 → ER 15:41 → INTOOBSV 01-26 00:59 → TELE 01-26 00:59 → TELE-WESTW 01-26 02:24
PROVIDERS: ADMIT Nurse Practitioner Family; ATTEND Internal Medicine
DX: N39.0 Urinary tract infection, site not specified (principal); N81.10 Cystocele, unspecified; N93.9 Abnormal uterine and vaginal bleeding, unspecified; I13.0 Hypertensive heart and chronic kidney disease with heart failure and stage 1 through stage 4 chronic kidney disease, or unspecified chronic kidney disease; I50.9 Heart failure, unspecified; N18.30 Chronic kidney disease, stage 3 unspecified; N17.9 Acute kidney failure, unspecified; S37.20XA Unspecified injury of bladder, initial encounter; R16.1 Splenomegaly, not elsewhere classified; E78.00 Pure hypercholesterolemia, unspecified; E78.5 Hyperlipidemia, unspecified; F41.9 Anxiety disorder, unspecified; K83.8 Other specified diseases of biliary tract; G89.29 Other chronic pain; Z79.899 Other long term (current) drug therapy; Z90.49 Acquired absence of other specified parts of digestive tract; Z90.710 Acquired absence of both cervix and uterus; X58.XXXA Exposure to other specified factors, initial encounter; Y93.89 Activity, other specified; Y92.89 Other specified places as the place of occurrence of the external cause
CPT/HCPCS: 36415; 71250; 74176; 76775; 76856; 80053; 81001; 83036; 83605; 83880; 85025; 85610; 85730; 87086; 87426; 96361; 96365; 96366; 96367; 96368; 96375; 96376; 99285; G0378; J0696; J1170; J2405; J2543; J3490

== ENCOUNTER → 2021-02-08 | Outpatient (CLI) | payer OTHER ==
[~2021-02-08] MED LIST changes: +FOLI1TAB6 PO; +METH2.5T PO; -MULTLIQ36 OR; -OMEP20TA PO; -OXY10CRT PO; +PERCOT PO; +PRED10TA PO; +PROC10TA2 PO; -PROM25TA5 PO
[2021-02-08 15:05] LABS: Basophils # (auto) 0 10 ^3/uL (0-0.2); Basophils % (auto) 0.3 % (0.0-2.0); Eosinophils # (auto) 0.2 10 ^3/uL (0-0.8); Hematocrit 39.9 % (36.0-46.0); Hemoglobin 13.5 g/dL (12.2-16.2); Lymphocytes # (auto) 1.3 10 ^3/uL (0.4-5.4); Lymphocytes % (auto) 23.3 % (10.0-50.0); Mean Corpuscular Hemoglobin 30.3 pg (28.0-32.0); Mean Corpuscular Hgb Conc. 33.9 g/dL (32.0-36.0); Mean Corpuscular Volume 89.2 fL (80.0-100.0); Monocytes # (auto) 0.5 10 ^3/uL (0-1.3); Monocytes % (auto) 9.5 % (0.0-12.0); Neutrophils # (auto) 3.6 10 ^3/uL (1.6-8.6); Neutrophils % (auto) 62.9 % (37.0-80.0); Nucleated Red Blood Cells % 0.1 %; Platelet Count (auto) 135 10^3/uL (140-450); Red Blood Cells 4.47 10^6/uL (4.0-5.20); Red Cell Distribution Width 16.5 % (11.8-14.3); White Blood Cell 5.7 10^3/uL (4.4-10.8)
[2021-02-08 15:25] LABS: BUN/Creatinine Ratio 17.7; Calcium 10.5 mg/dL (8.5-10.1); Potassium 4.2 mmol/L (3.5-5.1)
[2021-02-08 15:28] LABS: Bilirubin, Total 0.6 mg/dL (0.2-1.0)
== END | disposition home or self-care (01) ==
LOC: LAB 14:53
PROVIDERS: ATTEND Internal Medicine Rheumatology
DX: M05.79 Rheumatoid arthritis with rheumatoid factor of multiple sites without organ or systems involvement (principal)
CPT/HCPCS: 36415; 80053; 85025

== ENCOUNTER 2021-04-03 21:09 | Inpatient (IN) | payer OTHER ==
[~2021-04-03] VITALS: Ht 152.4 cm; Wt 59.1 kg
[2021-04-03 22:13] LABS: Basophils # (auto) 0 10 ^3/uL (0-0.2); Basophils % (auto) 0.2 % (0.0-2.0); Eosinophils # (auto) 0.1 10 ^3/uL (0-0.8); Eosinophils % (auto) 1.7 % (0.0-7.0); Hematocrit 40.7 % (36.0-46.0); Hemoglobin 14.3 g/dL (12.2-16.2); Lymphocytes # (auto) 2.1 10 ^3/uL (0.4-5.4); Lymphocytes % (auto) 25.4 % (10.0-50.0); Mean Corpuscular Hemoglobin 31.1 pg (28.0-32.0); Mean Corpuscular Hgb Conc. 35.2 g/dL (32.0-36.0); Mean Corpuscular Volume 88.3 fL (80.0-100.0); Monocytes # (auto) 0.6 10 ^3/uL (0-1.3); Monocytes % (auto) 7.4 % (0.0-12.0); Neutrophils # (auto) 5.3 10 ^3/uL (1.6-8.6); Neutrophils % (auto) 65.3 % (37.0-80.0); Nucleated Red Blood Cells % 0.9 %; Platelet Count (auto) 135 10^3/uL (140-450); Red Blood Cells 4.61 10^6/uL (4.0-5.20); Red Cell Distribution Width 13.6 % (11.8-14.3); White Blood Cell 8.1 10^3/uL (4.4-10.8)
[2021-04-03 22:26] LABS: Anion Gap 7 (5-15); Blood Urea Nitrogen 19 mg/dL (7-18); Calcium 9.2 mg/dL (8.5-10.1); Carbon Dioxide 26 mmol/L (21-32); Chloride 103 mmol/L (98-107); Glucose 89 mg/dL (74-106); Magnesium 2.5 mg/dL (1.6-2.6); Sodium 136 mmol/L (136-145)
[2021-04-03 22:31] LABS: Alanine Aminotransferase 16 U/L (13-56); Alkaline Phosphatase 64 U/L (45-117); Aspartate Aminotransferase 16 U/L (15-37); BUN/Creatinine Ratio 15.7; Bilirubin, Total 0.6 mg/dL (0.2-1.0); GFR African American 55 mL/min; GFR Non-African American 46 mL/min; Total Protein 8.2 g/dL (6.4-8.2)
[2021-04-03 22:36] LABS: INR 1.07 (0.9-1.15)
[2021-04-03] MEDS ORDERED: SODIUM CHLORIDE 0.9% 500 ML IV ONE (23:00)
[2021-04-03] MEDS ORDERED: IOHEXOL 300 MG/ML 100ML BOTTLE IJ ONE (23:02)
[2021-04-03 23:15] LABS: Urine Bacteria FEW /hpf (None Seen); Urine Blood Negative /uL (Negative); Urine Specific Gravity 1.017 (1.001-1.035); Urine WBC 9 /hpf (0 - 5)
[2021-04-04] MEDS ORDERED: NITROGLYCERIN 0.4 MG SL TAB SL PRN (00:45)
[2021-04-04] MEDS ORDERED: OXYMETAZOLINE HCL 0.05 % NASAL SPRAY 15ML EACHNOSTRI ONE (00:45)
[2021-04-04] MEDS: SODIUM CHLORIDE 0.9% 1,000 ML IV SCH ×2 (00:59→14:05)
[2021-04-04] MEDS: cefTRIAXone 1GM/50ML D5W 50 ML IV SCH ×2 (00:59→10:46)
[2021-04-04] MEDS ORDERED: fentaNYL CITRATE 100 MCG/2 ML VL IV ONE (01:00)
[2021-04-04] MEDS ORDERED: COCAINE HCL 4% TOP SOL 4ML TOP ONE (01:20)
[2021-04-04] MEDS: HYDROmorphone HCL 2 MG/ML VL IV PRN ×5 (02:22→21:24)
[2021-04-04] MEDS: ONDANSETRON HCL 4 MG/2 ML VIAL IV PRN ×5 (02:24→21:25)
[2021-04-04] MEDS ORDERED: GASTROGRAFIN 120 ML SOL ONE (08:02)
[2021-04-04 10:30] VITALS: BP 148/62
[2021-04-04] MEDS: PANTOPRAZOLE 40 MG/10 ML VIAL INJ IV SCH (10:46)
[2021-04-04 11:00] VITALS: BP 148/62
[2021-04-04] MEDS ORDERED: OXYC-113 PO (11:51)
[2021-04-04] MEDS ORDERED: ONDA-144 PO (11:51)
[2021-04-04 13:06] VITALS: BP 132/67
[2021-04-04 16:54] VITALS: BP 132/52
[2021-04-04 20:00] VITALS: BP 122/53
[2021-04-04 22:00] VITALS: BP 122/53
[2021-04-05] MEDS: ONDANSETRON HCL 4 MG/2 ML VIAL IV PRN (02:13)
[2021-04-05] MEDS: HYDROmorphone HCL 2 MG/ML VL IV PRN ×5 (02:14→23:37)
[2021-04-05] MEDS: SODIUM CHLORIDE 0.9% 1,000 ML IV SCH ×2 (03:25→14:05)
[2021-04-05 05:00] VITALS: BP 112/56
[2021-04-05 05:58] LABS: Basophils # (auto) 0 10 ^3/uL (0-0.2); Basophils % (auto) 0.2 % (0.0-2.0); Eosinophils # (auto) 0.2 10 ^3/uL (0-0.8); Eosinophils % (auto) 2.5 % (0.0-7.0); Hematocrit 34.9 % (36.0-46.0); Hemoglobin 12.5 g/dL (12.2-16.2); Lymphocytes # (auto) 1.8 10 ^3/uL (0.4-5.4); Lymphocytes % (auto) 24.7 % (10.0-50.0); Mean Corpuscular Hemoglobin 31.4 pg (28.0-32.0); Mean Corpuscular Hgb Conc. 35.8 g/dL (32.0-36.0); Mean Corpuscular Volume 87.6 fL (80.0-100.0); Monocytes # (auto) 0.7 10 ^3/uL (0-1.3); Monocytes % (auto) 10.3 % (0.0-12.0); Neutrophils # (auto) 4.5 10 ^3/uL (1.6-8.6); Neutrophils % (auto) 62.3 % (37.0-80.0); Nucleated Red Blood Cells % 0.2 %; Platelet Count (auto) 103 10^3/uL (140-450); Red Blood Cells 3.98 10^6/uL (4.0-5.20); Red Cell Distribution Width 13.7 % (11.8-14.3); White Blood Cell 7.3 10^3/uL (4.4-10.8)
[2021-04-05 06:10] LABS: Albumin 3.2 g/dL (3.4-5.0); Calcium 8.8 mg/dL (8.5-10.1); Potassium 4.6 mmol/L (3.5-5.1)
[2021-04-05 06:12] LABS: BUN/Creatinine Ratio 17.6
[2021-04-05 06:15] LABS: Bilirubin, Total 0.6 mg/dL (0.2-1.0); Total Protein 6.8 g/dL (6.4-8.2)
[2021-04-05 08:44] VITALS: BP 147/58
[2021-04-05] MEDS: cefTRIAXone 1GM/50ML D5W 50 ML IV SCH (09:24)
[2021-04-05] MEDS: PANTOPRAZOLE 40 MG/10 ML VIAL INJ IV SCH (09:25)
[2021-04-05 13:00] VITALS: BP 137/60
[2021-04-05] MEDS ORDERED: DICYCLOMINE HCL (10MG/ML) 2 ML AMPULE IM PRN (14:00)
[2021-04-05] MEDS ORDERED: DICYCLOMINE HCL (10MG/ML) 2 ML AMPULE IM SCH (14:00)
[2021-04-05 16:59] VITALS: BP 156/69
[2021-04-05 22:00] VITALS: BP 141/71
[2021-04-06] VITALS (18 sets, daily range): BP systolic 136–192; BP diastolic 52–107
[2021-04-06] MEDS: ONDANSETRON HCL 4 MG/2 ML VIAL IV PRN ×2 (01:48→09:30)
[2021-04-06 05:59] LABS: Basophils # (auto) 0 10 ^3/uL (0-0.2); Basophils % (auto) 0.1 % (0.0-2.0); Eosinophils # (auto) 0.1 10 ^3/uL (0-0.8); Eosinophils % (auto) 2.7 % (0.0-7.0); Hematocrit 32.7 % (36.0-46.0); Hemoglobin 11.8 g/dL (12.2-16.2); Lymphocytes # (auto) 1.1 10 ^3/uL (0.4-5.4); Lymphocytes % (auto) 22.2 % (10.0-50.0); Mean Corpuscular Hemoglobin 31.5 pg (28.0-32.0); Mean Corpuscular Volume 87.5 fL (80.0-100.0); Monocytes # (auto) 0.4 10 ^3/uL (0-1.3); Monocytes % (auto) 8.6 % (0.0-12.0); Neutrophils # (auto) 3.3 10 ^3/uL (1.6-8.6); Neutrophils % (auto) 66.4 % (37.0-80.0); Nucleated Red Blood Cells % 0.1 %; Platelet Count (auto) 100 10^3/uL (140-450); Red Blood Cells 3.74 10^6/uL (4.0-5.20); Red Cell Distribution Width 13.1 % (11.8-14.3); White Blood Cell 4.9 10^3/uL (4.4-10.8)
[2021-04-06 06:16] LABS: Albumin 3.4 g/dL (3.4-5.0); Calcium 8.5 mg/dL (8.5-10.1); Magnesium 1.9 mg/dL (1.6-2.6)
[2021-04-06 06:19] LABS: BUN/Creatinine Ratio 14.9; Bilirubin, Total 0.4 mg/dL (0.2-1.0); Phosphorus 2.6 mg/dL (2.5-4.90)
[2021-04-06] MEDS: HYDROmorphone HCL 2 MG/ML VL IV PRN ×4 (06:55→20:07)
[2021-04-06] MEDS: SODIUM CHLORIDE 0.9% 1,000 ML IV SCH ×2 (07:37→15:51)
[2021-04-06] MEDS ORDERED: fentaNYL CITRATE 100 MCG/2 ML VL ONE (09:06)
[2021-04-06] MEDS ORDERED: MIDAZOLAM HCL 1MG/1ML-2 ML VIAL ONE (09:06)
[2021-04-06] MEDS ORDERED: LIDOCAINE 2%HCL (LOCAL ANESTH.) INJ 20ML MDV ONE (09:14)
[2021-04-06] MEDS: cefTRIAXone 1GM/50ML D5W 50 ML IV SCH (10:50)
[2021-04-06] MEDS ORDERED: DICYCLOMINE HCL 10 MG CAP PO ONE (14:15)
[2021-04-06] MEDS: ACETAMINOPHEN 325 MG TAB PO PRN (20:07)
[2021-04-06] MEDS: DOCUSATE SOD 100 MG CAP PO SCH (22:00)
[2021-04-07] MEDS: HYDROmorphone HCL 2 MG/ML VL IV PRN ×5 (00:20→20:41)
[2021-04-07] MEDS: ONDANSETRON HCL 4 MG/2 ML VIAL IV PRN ×3 (02:08→21:38)
[2021-04-07 05:27] VITALS: BP 156/78
[2021-04-07] MEDS ORDERED: cloNIDine HCL 0.1 MG TAB PO PRN (06:00)
[2021-04-07 08:00] VITALS: BP 143/85
[2021-04-07 09:00] VITALS: BP 143/85
[2021-04-07] MEDS: DOCUSATE SOD 100 MG CAP PO SCH ×2 (09:43→21:26)
[2021-04-07] MEDS: ATENOLOL 50 MG TAB PO SCH ×2 (09:43→21:25)
[2021-04-07] MEDS: LISINOPRIL 20 MG TAB PO SCH ×2 (09:44→21:24)
[2021-04-07] MEDS: cefTRIAXone 1GM/50ML D5W 50 ML IV SCH (09:45)
[2021-04-07] MEDS: SODIUM CHLORIDE 0.9% 1,000 ML IV SCH ×2 (09:47→21:38)
[2021-04-07] MEDS ORDERED: LACTULOSE 20Gm/30ML SOLN PO PRN (11:30)
[2021-04-07 13:00] VITALS: BP 132/88
[2021-04-07 15:58] LABS: Basophils # (auto) 0 10 ^3/uL (0-0.2); Basophils % (auto) 0.2 % (0.0-2.0); Eosinophils # (auto) 0.2 10 ^3/uL (0-0.8); Eosinophils % (auto) 2.9 % (0.0-7.0); Hematocrit 27.8 % (36.0-46.0); Hemoglobin 10.1 g/dL (12.2-16.2); Lymphocytes # (auto) 0.8 10 ^3/uL (0.4-5.4); Lymphocytes % (auto) 15.4 % (10.0-50.0); Mean Corpuscular Hemoglobin 31.6 pg (28.0-32.0); Mean Corpuscular Hgb Conc. 36.2 g/dL (32.0-36.0); Mean Corpuscular Volume 87.3 fL (80.0-100.0); Monocytes # (auto) 0.5 10 ^3/uL (0-1.3); Monocytes % (auto) 9.2 % (0.0-12.0); Neutrophils # (auto) 3.8 10 ^3/uL (1.6-8.6); Neutrophils % (auto) 72.3 % (37.0-80.0); Nucleated Red Blood Cells % 0.1 %; Platelet Count (auto) 111 10^3/uL (140-450); Red Blood Cells 3.18 10^6/uL (4.0-5.20); Red Cell Distribution Width 13.3 % (11.8-14.3); White Blood Cell 5.3 10^3/uL (4.4-10.8)
[2021-04-07 17:00] VITALS: BP 141/70
[2021-04-07 22:00] VITALS: BP 174/100
[2021-04-08] MEDS: HYDROmorphone HCL 2 MG/ML VL IV PRN ×4 (01:25→22:56)
[2021-04-08] MEDS: ONDANSETRON HCL 4 MG/2 ML VIAL IV PRN ×2 (03:18→11:54)
[2021-04-08 05:00] VITALS: BP 145/72
[2021-04-08 07:29] LABS: Basophils # (auto) 0 10 ^3/uL (0-0.2); Basophils % (auto) 0.2 % (0.0-2.0); Eosinophils # (auto) 0.2 10 ^3/uL (0-0.8); Eosinophils % (auto) 3.4 % (0.0-7.0); Hematocrit 24.5 % (36.0-46.0); Hemoglobin 8.9 g/dL (12.2-16.2); Lymphocytes # (auto) 1.2 10 ^3/uL (0.4-5.4); Lymphocytes % (auto) 22.9 % (10.0-50.0); Mean Corpuscular Hemoglobin 31.7 pg (28.0-32.0); Mean Corpuscular Hgb Conc. 36.3 g/dL (32.0-36.0); Mean Corpuscular Volume 87.3 fL (80.0-100.0); Monocytes # (auto) 0.4 10 ^3/uL (0-1.3); Monocytes % (auto) 8.6 % (0.0-12.0); Neutrophils # (auto) 3.3 10 ^3/uL (1.6-8.6); Neutrophils % (auto) 64.9 % (37.0-80.0); Nucleated Red Blood Cells % 0.1 %; Platelet Count (auto) 105 10^3/uL (140-450); Red Cell Distribution Width 13.3 % (11.8-14.3)
[2021-04-08 07:53] LABS: Calcium 8.5 mg/dL (8.5-10.1); Potassium 3.6 mmol/L (3.5-5.1)
[2021-04-08 07:59] LABS: BUN/Creatinine Ratio 7.9; Bilirubin, Total 0.3 mg/dL (0.2-1.0)
[2021-04-08] MEDS: cefTRIAXone 1GM/50ML D5W 50 ML IV SCH (09:23)
[2021-04-08 09:54] VITALS: BP 147/67
[2021-04-08] MEDS: DOCUSATE SOD 100 MG CAP PO SCH ×2 (09:58→23:05)
[2021-04-08] MEDS: LISINOPRIL 20 MG TAB PO SCH ×2 (09:58→21:40)
[2021-04-08] MEDS: ATENOLOL 50 MG TAB PO SCH ×2 (09:58→21:41)
[2021-04-08] MEDS: OXYCODONE W/ ACETAMINOPHEN 5/325MG TABLET PO PRN ×2 (11:27→20:45)
[2021-04-08] MEDS: SODIUM CHLORIDE 0.9% 1,000 ML IV SCH ×2 (11:27→14:02)
[2021-04-08 13:00] VITALS: BP 150/74
[2021-04-08 17:00] VITALS: BP 154/65
[2021-04-08 22:00] VITALS: BP 148/79
[2021-04-09] MEDS: SODIUM CHLORIDE 0.9% 1,000 ML IV SCH (00:45)
[2021-04-09] MEDS: ONDANSETRON HCL 4 MG/2 ML VIAL IV PRN ×3 (02:19→22:44)
[2021-04-09] MEDS: OXYCODONE W/ ACETAMINOPHEN 5/325MG TABLET PO PRN ×4 (02:20→22:50)
[2021-04-09] MEDS: HYDROmorphone HCL 2 MG/ML VL IV PRN ×4 (04:15→20:08)
[2021-04-09 06:04] VITALS: BP 153/71
[2021-04-09 06:50] LABS: BUN/Creatinine Ratio 9.5; Calcium 8.3 mg/dL (8.5-10.1); Potassium 3.2 mmol/L (3.5-5.1)
[2021-04-09 08:01] LABS: Basophils # (auto) 0 10 ^3/uL (0-0.2); Basophils % (auto) 0.2 % (0.0-2.0); Eosinophils # (auto) 0.2 10 ^3/uL (0-0.8); Eosinophils % (auto) 4.6 % (0.0-7.0); Hematocrit 24.5 % (36.0-46.0); Hemoglobin 8.7 g/dL (12.2-16.2); Lymphocytes # (auto) 1.1 10 ^3/uL (0.4-5.4); Lymphocytes % (auto) 24.6 % (10.0-50.0); Mean Corpuscular Hemoglobin 31.2 pg (28.0-32.0); Mean Corpuscular Hgb Conc. 35.5 g/dL (32.0-36.0); Mean Corpuscular Volume 87.9 fL (80.0-100.0); Monocytes # (auto) 0.4 10 ^3/uL (0-1.3); Monocytes % (auto) 8.7 % (0.0-12.0); Neutrophils # (auto) 2.7 10 ^3/uL (1.6-8.6); Neutrophils % (auto) 61.9 % (37.0-80.0); Nucleated Red Blood Cells % 0.3 %; Platelet Count (auto) 112 10^3/uL (140-450); Red Blood Cells 2.79 10^6/uL (4.0-5.20); Red Cell Distribution Width 13.2 % (11.8-14.3); White Blood Cell 4.4 10^3/uL (4.4-10.8)
[2021-04-09 09:00] VITALS: BP 183/62
[2021-04-09] MEDS: cefTRIAXone 1GM/50ML D5W 50 ML IV SCH (09:02)
[2021-04-09] MEDS: LISINOPRIL 20 MG TAB PO SCH ×2 (09:03→22:19)
[2021-04-09] MEDS: ATENOLOL 50 MG TAB PO SCH ×2 (09:03→22:18)
[2021-04-09] MEDS: DOCUSATE SOD 100 MG CAP PO SCH ×2 (09:04→22:17)
[2021-04-09 13:00] VITALS: BP 160/63
[2021-04-09] MEDS ORDERED: NIFEdipine 10 MG CAP PO ONE (14:30)
[2021-04-09] MEDS ORDERED: POTASSIUM CHL 20 Meq TABLET PO ONE (14:30)
[2021-04-09] MEDS ORDERED: hydrALAZINE HCL 20 MG/ML VL IV PRN (14:30)
[2021-04-09] MEDS ORDERED: NIFEdipine ER 30 MG TAB PO ONE (14:30)
[2021-04-09 17:11] VITALS: BP 141/57
[2021-04-09 19:40] LABS: INR 1.07 (0.9-1.15)
[2021-04-09] MEDS ORDERED: METH2.5T PO (19:49)
[2021-04-09] MEDS: ACETAMINOPHEN 325 MG TAB PO PRN (20:15)
[2021-04-09 22:00] VITALS: BP 136/62
[2021-04-10 05:00] VITALS: BP 147/69
[2021-04-10] MEDS: ONDANSETRON HCL 4 MG/2 ML VIAL IV PRN ×2 (06:20→12:20)
[2021-04-10] MEDS: HYDROmorphone HCL 2 MG/ML VL IV PRN ×2 (06:20→12:19)
[2021-04-10 06:30] LABS: Basophils # (auto) 0 10 ^3/uL (0-0.2); Basophils % (auto) 0.2 % (0.0-2.0); Monocytes # (auto) 0.5 10 ^3/uL (0-1.3); Red Blood Cells 3.35 10^6/uL (4.0-5.20)
[2021-04-10 06:32] LABS: Eosinophils # (auto) 0.1 10 ^3/uL (0-0.8); Eosinophils % (auto) 2.1 % (0.0-7.0); Hematocrit 29.2 % (36.0-46.0); Hemoglobin 10.6 g/dL (12.2-16.2); Lymphocytes % (auto) 13.6 % (10.0-50.0); Mean Corpuscular Hemoglobin 31.7 pg (28.0-32.0); Mean Corpuscular Hgb Conc. 36.4 g/dL (32.0-36.0); Mean Corpuscular Volume 87.1 fL (80.0-100.0); Monocytes % (auto) 7.3 % (0.0-12.0); Neutrophils # (auto) 5.6 10 ^3/uL (1.6-8.6); Neutrophils % (auto) 76.8 % (37.0-80.0); Nucleated Red Blood Cells % 0.1 %; Platelet Count (auto) 139 10^3/uL (140-450); White Blood Cell 7.3 10^3/uL (4.4-10.8)
[2021-04-10 06:43] LABS: Potassium 3.4 mmol/L (3.5-5.1)
[2021-04-10 06:46] LABS: Magnesium 1.7 mg/dL (1.6-2.6)
[2021-04-10 09:00] VITALS: BP 133/58
[2021-04-10] MEDS: DOCUSATE SOD 100 MG CAP PO SCH (09:44)
[2021-04-10] MEDS: ATENOLOL 50 MG TAB PO SCH (09:45)
[2021-04-10] MEDS: LISINOPRIL 20 MG TAB PO SCH (09:46)
[2021-04-10] MEDS: OXYCODONE W/ ACETAMINOPHEN 5/325MG TABLET PO PRN (09:47)
[2021-04-10] MEDS ORDERED: NIFEdipine ER 30 MG TAB PO SCH (10:00)
[2021-04-10] MEDS ORDERED: MAGNESIUM OXIDE 400 MG TAB PO ONE (12:00)
[2021-04-10] MEDS ORDERED: POTASSIUM CHL 20 Meq TABLET PO ONE (12:00)
[2021-04-10] MEDS ORDERED: FUROSEMIDE 40 MG/4 ML VIAL IV ONE (12:15)
[2021-04-10 13:00] VITALS: BP 112/55
[2021-04-10] MEDS: ACETAMINOPHEN 325 MG TAB PO PRN (15:45)
== END 2021-04-10 16:00 | disposition home or self-care (01) | DRG 388 ==
LOC: EDBD 21:09 → ER 21:11 → TELE 04-04 00:35 → TELE-WESTW 04-04 10:15 → WEST WING 04-04 18:23
PROVIDERS: ADMIT Nurse Practitioner; ATTEND Internal Medicine
PROC: 0BBL3ZX Excision of Left Lung, Percutaneous Approach, Diagnostic (ICD-10-PCS; principal; 2021-04-06)
PROC: 0W9B30Z Drainage of Left Pleural Cavity with Drainage Device, Percutaneous Approach (ICD-10-PCS; 2021-04-09)
DX: K56.699 Other intestinal obstruction unspecified as to partial versus complete obstruction (principal); J96.01 Acute respiratory failure with hypoxia; N39.0 Urinary tract infection, site not specified; J90 Pleural effusion, not elsewhere classified; J94.2 Hemothorax; J98.11 Atelectasis; N17.9 Acute kidney failure, unspecified; I13.0 Hypertensive heart and chronic kidney disease with heart failure and stage 1 through stage 4 chronic kidney disease, or unspecified chronic kidney disease; R91.8 Other nonspecific abnormal finding of lung field; E78.5 Hyperlipidemia, unspecified; D63.8 Anemia in other chronic diseases classified elsewhere; N18.31 Chronic kidney disease, stage 3a; G89.29 Other chronic pain; M16.10 Unilateral primary osteoarthritis, unspecified hip; Z79.899 Other long term (current) drug therapy; Z82.49 Family history of ischemic heart disease and other diseases of the circulatory system; Z85.820 Personal history of malignant melanoma of skin; Z87.440 Personal history of urinary (tract) infections; Z87.891 Personal history of nicotine dependence; Z90.710 Acquired absence of both cervix and uterus; Z88.8 Allergy status to other drugs, medicaments and biological substances; Z20.822 Contact with and (suspected) exposure to COVID-19; R91.1 Solitary pulmonary nodule; I50.9 Heart failure, unspecified; D72.829 Elevated white blood cell count, unspecified; K59.03 Drug induced constipation; T40.605A Adverse effect of unspecified narcotics, initial encounter
CPT/HCPCS: 10022; 36415; 71045; 71250; 74176; 74250; 76604; 77012; 80048; 80053; 81001; 83605; 83735; 83986; 84100; 84443; 84484; 85025; 85049; 85610; 87205; 87426; 89051; 96361; 96365; 96375; C9113; G0378; J0696; J2250; J2405

== ENCOUNTER 2021-04-20 06:45 | Inpatient (IN) | payer OTHER ==
[2021-04-17 14:23] LABS: Basophils # (auto) 0 10 ^3/uL (0-0.2); Basophils % (auto) 0.3 % (0.0-2.0); Eosinophils # (auto) 0.2 10 ^3/uL (0-0.8); Eosinophils % (auto) 2.7 % (0.0-7.0); Hematocrit 32.3 % (36.0-46.0); Hemoglobin 11.4 g/dL (12.2-16.2); Lymphocytes # (auto) 1.7 10 ^3/uL (0.4-5.4); Lymphocytes % (auto) 22.6 % (10.0-50.0); Mean Corpuscular Hemoglobin 30.8 pg (28.0-32.0); Mean Corpuscular Hgb Conc. 35.1 g/dL (32.0-36.0); Mean Corpuscular Volume 87.7 fL (80.0-100.0); Monocytes # (auto) 0.6 10 ^3/uL (0-1.3); Monocytes % (auto) 7.5 % (0.0-12.0); Neutrophils % (auto) 66.9 % (37.0-80.0); Red Blood Cells 3.69 10^6/uL (4.0-5.20); Red Cell Distribution Width 13.2 % (11.8-14.3); White Blood Cell 7.4 10^3/uL (4.4-10.8)
[2021-04-17 14:56] LABS: Albumin 3.8 g/dL (3.4-5.0); BUN/Creatinine Ratio 13.7; Potassium 4.2 mmol/L (3.5-5.1)
[2021-04-17 14:59] LABS: Bilirubin, Total 0.4 mg/dL (0.2-1.0); Total Protein 7.7 g/dL (6.4-8.2)
[2021-04-17 17:14] LABS: Urine Blood Negative /uL (Negative); Urine Specific Gravity 1.019 (1.001-1.035)
[~2021-04-20] VITALS: Ht 134.6 cm; Wt 63.3 kg
[~2021-04-20 06:45] MED LIST changes: -ALLO100T PO; -DILT120C45 PO; -FURO20TA3 PO; -HYDR50TA15 PO; +OXYC-113 PO; -PERCOT PO; -PROC10TA2 PO
[2021-04-20] MEDS ORDERED: ceFAZolin 1GM/50ML 50 ML IV ONE (07:50)
[2021-04-20] MEDS ORDERED: fentaNYL CITRATE 100 MCG/2 ML VL ONE (08:14)
[2021-04-20] MEDS ORDERED: PROPOFOL 10 MG/ML 20 ML IV ONE (08:15)
[2021-04-20] MEDS ORDERED: SODIUM CHLORIDE LOCK 10 ML ONE ×2 (08:15→10:15)
[2021-04-20] MEDS ORDERED: MIDAZOLAM HCL 1MG/1ML-2 ML VIAL ONE ×3 (08:15→09:44)
[2021-04-20] MEDS ORDERED: ONDANSETRON HCL 4 MG/2 ML VIAL ONE (08:15)
[2021-04-20 08:40] LABS: INR 1.03 (0.9-1.15); Partial Thromboplastin Time 27.8 sec (23.0-31.2)
[2021-04-20] MEDS ORDERED: CONJ ESTROGENS 0.625MG/GM VAG CRM 30GM PV ONE (08:45)
[2021-04-20] MEDS ORDERED: TETRACAINE 1% INJ 2 ML VIAL IJ ONE ×2 (08:58→09:07)
[2021-04-20] MEDS ORDERED: BUPIVACAINE/DEXTROSE MPF 0.75% 2 ML AMP IT ONE (09:08)
[2021-04-20] MEDS ORDERED: HYDROCORTISONE SOD SUCC 100 MG/2ML INJ VIAL ONE (09:09)
[2021-04-20] MEDS ORDERED: ePHEDrine SULFATE 50 MG/ML AMP ONE (10:15)
[2021-04-20] MEDS ORDERED: NITROGLYCERIN 0.4 MG SL TAB SL PRN (11:45)
[2021-04-20] MEDS ORDERED: ACETAMINOPHEN IV 100 ML IV ONE (11:45)
[2021-04-20] MEDS ORDERED: HYDROmorphone HCL 2 MG/ML VL IV PRN (11:45)
[2021-04-20] MEDS ORDERED: MORPHINE SULF INJ 2 MG/ML SYRINGE 1ML IV PRN (11:45)
[2021-04-20 13:30] VITALS: BP 122/51
[2021-04-20] MEDS: ceFAZolin 1GM/50ML 50 ML IV SCH ×2 (14:15→22:40)
[2021-04-20] MEDS: LACTATED RINGER'S 1,000 ML IV SCH ×2 (14:15→21:45)
[2021-04-20 14:30] VITALS: BP 122/51
[2021-04-20] MEDS: OXYCODONE W/ ACETAMINOPHEN 5/325MG TABLET PO PRN ×2 (15:26→20:00)
[2021-04-20 17:00] VITALS: BP 128/49
[2021-04-20] MEDS: ONDANSETRON HCL 4 MG/2 ML VIAL IV PRN (19:59)
[2021-04-20 21:00] VITALS: BP 128/52
[2021-04-20] MEDS: LISINOPRIL 20 MG TAB PO SCH (22:00)
[2021-04-20] MEDS: cloNIDine HCL 0.1 MG TAB PO SCH (22:00)
[2021-04-20] MEDS: ATENOLOL 50 MG TAB PO SCH (22:00)
[2021-04-21] MEDS: ONDANSETRON HCL 4 MG/2 ML VIAL IV PRN ×2 (02:34→08:29)
[2021-04-21] MEDS: OXYCODONE W/ ACETAMINOPHEN 5/325MG TABLET PO PRN ×3 (02:35→13:01)
[2021-04-21] MEDS: ceFAZolin 1GM/50ML 50 ML IV SCH ×4 (06:06→22:30)
[2021-04-21 08:00] VITALS: BP 137/64
[2021-04-21] MEDS: LACTATED RINGER'S 1,000 ML IV SCH ×3 (08:28→20:08)
[2021-04-21 09:00] VITALS: BP 137/64
[2021-04-21] MEDS: cloNIDine HCL 0.1 MG TAB PO SCH ×3 (09:15→23:00)
[2021-04-21] MEDS: ATENOLOL 50 MG TAB PO SCH ×2 (09:16→22:00)
[2021-04-21] MEDS: LISINOPRIL 20 MG TAB PO SCH ×2 (09:16→22:00)
[2021-04-21] MEDS: SERTRALINE HCL 50 MG TAB PO SCH (09:16)
[2021-04-21] MEDS: HYDROmorphone HCL 2 MG/ML VL IV PRN ×2 (10:47→23:44)
[2021-04-21 10:57] LABS: Basophils # (auto) 0 10 ^3/uL (0-0.2); Basophils % (auto) 0.2 % (0.0-2.0); Eosinophils # (auto) 0 10 ^3/uL (0-0.8); Eosinophils % (auto) 0.8 % (0.0-7.0); Hematocrit 25.4 % (36.0-46.0); Lymphocytes % (auto) 22.8 % (10.0-50.0); Mean Corpuscular Hemoglobin 31.2 pg (28.0-32.0); Mean Corpuscular Hgb Conc. 35.7 g/dL (32.0-36.0); Mean Corpuscular Volume 87.4 fL (80.0-100.0); Monocytes # (auto) 0.3 10 ^3/uL (0-1.3); Monocytes % (auto) 7.3 % (0.0-12.0); Neutrophils # (auto) 3.1 10 ^3/uL (1.6-8.6); Neutrophils % (auto) 68.9 % (37.0-80.0); Red Cell Distribution Width 13.2 % (11.8-14.3); White Blood Cell 4.5 10^3/uL (4.4-10.8)
[2021-04-21 11:28] LABS: Calcium 8.3 mg/dL (8.5-10.1); Potassium 3.8 mmol/L (3.5-5.1)
[2021-04-21 11:33] LABS: BUN/Creatinine Ratio 10.3; Bilirubin, Total 0.3 mg/dL (0.2-1.0); Total Protein 6.2 g/dL (6.4-8.2)
[2021-04-21] MEDS: SIMETHICONE 80 MG CHEWABLE TABLET PO SCH ×3 (12:05→22:00)
[2021-04-21 13:00] VITALS: BP 98/53
[2021-04-21 16:55] VITALS: BP 105/53
[2021-04-21 21:30] VITALS: BP 134/65
[2021-04-22] MEDS: HYDROmorphone HCL 2 MG/ML VL IV PRN ×4 (01:07→17:56)
[2021-04-22] MEDS: cloNIDine HCL 0.1 MG TAB PO SCH ×3 (01:07→22:09)
[2021-04-22 05:53] VITALS: BP 108/46
[2021-04-22] MEDS: SIMETHICONE 80 MG CHEWABLE TABLET PO SCH ×4 (06:24→22:00)
[2021-04-22 08:00] VITALS: BP 123/54
[2021-04-22 09:50] VITALS: BP 123/54
[2021-04-22] MEDS: ATENOLOL 50 MG TAB PO SCH ×2 (10:00→22:10)
[2021-04-22] MEDS: LISINOPRIL 20 MG TAB PO SCH ×2 (10:31→22:10)
[2021-04-22] MEDS: SERTRALINE HCL 50 MG TAB PO SCH (10:31)
[2021-04-22] MEDS: OXYCODONE W/ ACETAMINOPHEN 5/325MG TABLET PO PRN ×2 (10:32→22:07)
[2021-04-22 12:47] VITALS: BP 109/39
[2021-04-22] MEDS: ceFAZolin 1GM/50ML 50 ML IV SCH ×2 (14:41→22:11)
[2021-04-22 16:38] VITALS: BP 146/63
[2021-04-22 22:00] VITALS: BP 129/76
[2021-04-22] MEDS: DOCUSATE SOD 100 MG CAP PO SCH (22:06)
[2021-04-22] MEDS: LACTATED RINGER'S 1,000 ML IV SCH (23:45)
[2021-04-23] MEDS: OXYCODONE W/ ACETAMINOPHEN 5/325MG TABLET PO PRN ×2 (02:59→14:33)
[2021-04-23 05:00] VITALS: BP 144/61
[2021-04-23] MEDS: SIMETHICONE 80 MG CHEWABLE TABLET PO SCH ×2 (06:00→12:01)
[2021-04-23] MEDS: ceFAZolin 1GM/50ML 50 ML IV SCH (06:30)
[2021-04-23 09:00] VITALS: BP 135/68
[2021-04-23] MEDS: LACTATED RINGER'S 1,000 ML IV SCH (09:01)
[2021-04-23] MEDS: DOCUSATE SOD 100 MG CAP PO SCH (09:51)
[2021-04-23] MEDS: cloNIDine HCL 0.1 MG TAB PO SCH (09:51)
[2021-04-23] MEDS: SERTRALINE HCL 50 MG TAB PO SCH (09:52)
[2021-04-23] MEDS: ATENOLOL 50 MG TAB PO SCH (09:52)
[2021-04-23] MEDS: LISINOPRIL 20 MG TAB PO SCH (09:52)
[2021-04-23] MEDS ORDERED: CEPHALEXIN 250 MG CAP PO SCH (12:00)
[2021-04-23 13:00] VITALS: BP 143/69
== END 2021-04-23 13:15 | disposition home or self-care (01) | DRG 748 ==
LOC: SUR 06:45 → TELE-WESTW 13:48 → WEST WING 13:52
PROVIDERS: ADMIT Specialist; ATTEND Specialist
PROC: 0USG0ZZ Reposition Vagina, Open Approach (ICD-10-PCS; 2021-04-20)
PROC: 0JQC0ZZ Repair Pelvic Region Subcutaneous Tissue and Fascia, Open Approach (ICD-10-PCS; principal; 2021-04-20 09:23)
DX: N81.10 Cystocele, unspecified (principal); N39.0 Urinary tract infection, site not specified; Z20.822 Contact with and (suspected) exposure to COVID-19; I10 Essential (primary) hypertension; M06.9 Rheumatoid arthritis, unspecified; Z90.710 Acquired absence of both cervix and uterus; Z90.722 Acquired absence of ovaries, bilateral; Z79.899 Other long term (current) drug therapy
CPT/HCPCS: 36415; 80053; 81003; 85025; 85049; 85610; 85730; 86850; 86900; 86901; 97163; G0378; J0690; J2250; J2405; J2704

== ENCOUNTER 2021-05-15 19:05 | Inpatient (IN) | payer OTHER ==
[~2021-05-15] VITALS: Ht 160 cm; Wt 54.0 kg
[2021-05-15] MEDS ORDERED: METOCLOPRAMIDE HCL 5MG/ml INJ 2ml VIAL IV ONE (20:00)
[2021-05-15] MEDS ORDERED: MORPHINE SULFATE 4 MG/ML SYR/VIAL IV ONE (20:00)
[2021-05-15 21:02] LABS: Anion Gap 4 (5-15); Blood Urea Nitrogen 21 mg/dL (7-18); Calcium 9.1 mg/dL (8.5-10.1); Carbon Dioxide 28 mmol/L (21-32); Chloride 102 mmol/L (98-107); Glucose 116 mg/dL (74-106); Magnesium 1.9 mg/dL (1.6-2.6); Potassium 4.3 mmol/L (3.5-5.1); Sodium 134 mmol/L (136-145)
[2021-05-15 21:10] LABS: Alanine Aminotransferase 16 U/L (13-56); Albumin 3.8 g/dL (3.4-5.0); Alkaline Phosphatase 66 U/L (45-117); Aspartate Aminotransferase 14 U/L (15-37); BUN/Creatinine Ratio 17.4; Basophils # (auto) 0 10 ^3/uL (0-0.2); Basophils % (auto) 0.1 % (0.0-2.0); Bilirubin, Total 0.6 mg/dL (0.2-1.0); Eosinophils # (auto) 0 10 ^3/uL (0-0.8); Eosinophils % (auto) 0.3 % (0.0-7.0); GFR African American 55 mL/min; GFR Non-African American 46 mL/min; Hematocrit 35.1 % (36.0-46.0); Hemoglobin 11.8 g/dL (12.2-16.2); Lymphocytes # (auto) 0.5 10 ^3/uL (0.4-5.4); Lymphocytes % (auto) 3.4 % (10.0-50.0); Mean Corpuscular Hemoglobin 28.4 pg (28.0-32.0); Mean Corpuscular Hgb Conc. 33.6 g/dL (32.0-36.0); Mean Corpuscular Volume 84.5 fL (80.0-100.0); Monocytes # (auto) 0.4 10 ^3/uL (0-1.3); Monocytes % (auto) 2.8 % (0.0-12.0); Neutrophils # (auto) 13.4 10 ^3/uL (1.6-8.6); Neutrophils % (auto) 93.4 % (37.0-80.0); Red Blood Cells 4.15 10^6/uL (4.0-5.20); Red Cell Distribution Width 13.7 % (11.8-14.3); Total Protein 8.1 g/dL (6.4-8.2); White Blood Cell 14.3 10^3/uL (4.4-10.8)
[2021-05-15] MEDS ORDERED: ACETAMINOPHEN 325 MG TAB PO ONE (22:00)
[2021-05-15 22:48] LABS: Urine Bacteria NONE SEEN /hpf (None Seen); Urine Blood Negative /uL (Negative); Urine Specific Gravity 1.014 (1.001-1.035); Urine WBC 17 /hpf (0 - 5)
[2021-05-16] MEDS ORDERED: ACETAMINOPHEN 325 MG TAB PO PRN (01:30)
[2021-05-16] MEDS ORDERED: DOCUSATE SOD 100 MG CAP PO PRN (01:30)
[2021-05-16] MEDS: SODIUM CHLORIDE 0.9% 1,000 ML IV SCH ×3 (02:11→18:22)
[2021-05-16] MEDS: HYDROcodone-ACET 5/325MG TAB PO PRN ×3 (02:11→21:33)
[2021-05-16] MEDS: MORPHINE SULF INJ 2 MG/ML SYRINGE 1ML IV PRN ×6 (02:12→22:55)
[2021-05-16 07:59] LABS: Basophils # (auto) 0 10 ^3/uL (0-0.2); Basophils % (auto) 0.1 % (0.0-2.0); Eosinophils # (auto) 0.1 10 ^3/uL (0-0.8); Eosinophils % (auto) 1.1 % (0.0-7.0); Hematocrit 32.4 % (36.0-46.0); Lymphocytes # (auto) 1.2 10 ^3/uL (0.4-5.4); Lymphocytes % (auto) 9.5 % (10.0-50.0); Mean Corpuscular Volume 85.4 fL (80.0-100.0); Monocytes # (auto) 0.5 10 ^3/uL (0-1.3); Monocytes % (auto) 3.9 % (0.0-12.0); Neutrophils # (auto) 10.9 10 ^3/uL (1.6-8.6); Neutrophils % (auto) 85.4 % (37.0-80.0); Nucleated Red Blood Cells % 0.1 %; Red Cell Distribution Width 13.6 % (11.8-14.3); White Blood Cell 12.8 10^3/uL (4.4-10.8)
[2021-05-16 08:21] LABS: Calcium 9.2 mg/dL (8.5-10.1); Potassium 4.1 mmol/L (3.5-5.1)
[2021-05-16 08:24] LABS: BUN/Creatinine Ratio 18.1
[2021-05-16] MEDS: cefTRIAXone 1GM/50ML D5W 50 ML IV SCH (10:22)
[2021-05-16 13:41] VITALS: BP 137/65
[2021-05-16] MEDS ORDERED: AZITHROMYCIN 500MG/ 250ML 250 ML IV ONE (16:30)
[2021-05-16 16:35] VITALS: BP 134/64
[2021-05-16 22:00] VITALS: BP 155/66
[2021-05-16] MEDS: METOPROLOL TARTRATE 25 MG TAB PO SCH (22:54)
[2021-05-16] MEDS: ONDANSETRON HCL 4 MG/2 ML VIAL IV PRN (22:55)
[2021-05-17 05:00] VITALS: BP 148/73
[2021-05-17] MEDS: SODIUM CHLORIDE 0.9% 1,000 ML IV SCH (06:42)
[2021-05-17 08:51] VITALS: BP 151/77
[2021-05-17] MEDS: MORPHINE SULF INJ 2 MG/ML SYRINGE 1ML IV PRN (09:29)
[2021-05-17] MEDS: ONDANSETRON HCL 4 MG/2 ML VIAL IV PRN (09:29)
[2021-05-17] MEDS: cefTRIAXone 1GM/50ML D5W 50 ML IV SCH (09:30)
[2021-05-17] MEDS: METOPROLOL TARTRATE 25 MG TAB PO SCH (09:32)
[2021-05-17] MEDS ORDERED: ENOXAPARIN SOD 40 MG/0.4 ML SYRINGE SC SCH (10:00)
[2021-05-17] MEDS ORDERED: AZITHROMYCIN 500MG/ 250ML 250 ML IV SCH (10:00)
[2021-05-17] MEDS ORDERED: PANTOPRAZOLE 40 MG TAB PO SCH (10:00)
[2021-05-17] MEDS ORDERED: predniSONE 5 MG TAB PO SCH (10:00)
[2021-05-17] MEDS ORDERED: SERTRALINE HCL 50 MG TAB PO SCH (10:00)
[2021-05-17] MEDS ORDERED: FOLIC ACID 1 MG TAB PO SCH (10:00)
[2021-05-17] MEDS ORDERED: OXYCODONE W/ ACETAMINOPHEN 5/325MG TABLET PO ONE (11:45)
[2021-05-17] MEDS ORDERED: CIPR-173 PO (11:51)
[2021-05-17] MEDS ORDERED: cloNIDine HCL 0.1 MG TAB PO ONE (12:00)
[2021-05-17 13:00] VITALS: BP 180/82
[2021-05-17 16:35] VITALS: BP 143/75
== END 2021-05-17 16:48 | disposition home or self-care (01) | DRG 689 ==
LOC: EDBD 19:05 → ER 19:07 → OVERFLOW 05-16 01:31 → CENTRAL 05-16 13:34
PROVIDERS: ADMIT Hospitalist; ATTEND Internal Medicine
DX: N39.0 Urinary tract infection, site not specified (principal); N17.0 Acute kidney failure with tubular necrosis; I10 Essential (primary) hypertension; J84.10 Pulmonary fibrosis, unspecified; Z20.822 Contact with and (suspected) exposure to COVID-19; M06.9 Rheumatoid arthritis, unspecified; Z88.8 Allergy status to other drugs, medicaments and biological substances; Z82.49 Family history of ischemic heart disease and other diseases of the circulatory system; Z90.710 Acquired absence of both cervix and uterus; Z90.49 Acquired absence of other specified parts of digestive tract
CPT/HCPCS: 36415; 70450; 71045; 74176; 80048; 80053; 81001; 83735; 84484; 85025; 87040; 87081; 87086; 87426; 93005; 96365; 96375; G0378; J0696; J2405

== ENCOUNTER → 2021-06-08 | Outpatient (CLI) | payer OTHER ==
[~2021-06-08] MED LIST changes: +CIPR-173 PO
[2021-06-08 14:38] LABS: Basophils # (auto) 0 10 ^3/uL (0-0.2); Basophils % (auto) 0.3 % (0.0-2.0); Eosinophils # (auto) 0.2 10 ^3/uL (0-0.8); Hematocrit 34.4 % (36.0-46.0); Hemoglobin 11.3 g/dL (12.2-16.2); Lymphocytes # (auto) 1.4 10 ^3/uL (0.4-5.4); Lymphocytes % (auto) 23.1 % (10.0-50.0); Mean Corpuscular Hemoglobin 27.5 pg (28.0-32.0); Mean Corpuscular Hgb Conc. 32.9 g/dL (32.0-36.0); Mean Corpuscular Volume 83.6 fL (80.0-100.0); Monocytes # (auto) 0.4 10 ^3/uL (0-1.3); Monocytes % (auto) 6.2 % (0.0-12.0); Neutrophils % (auto) 66.4 % (37.0-80.0); Red Blood Cells 4.11 10^6/uL (4.0-5.20); Red Cell Distribution Width 13.8 % (11.8-14.3); White Blood Cell 6.1 10^3/uL (4.4-10.8)
[2021-06-08 14:40] LABS: Urine Bacteria NONE SEEN /hpf (None Seen); Urine Blood Negative /uL (Negative); Urine Hyaline Cast FEW /lpf (0 - 2); Urine Specific Gravity 1.012 (1.001-1.035); Urine WBC 495 /hpf (0 - 5); Urine WBC Clumps PRESENT /hpf (None Seen)
[2021-06-08 15:00] LABS: Albumin 3.5 g/dL (3.4-5.0); Calcium 9.3 mg/dL (8.5-10.1); Potassium 4.7 mmol/L (3.5-5.1)
[2021-06-08 15:04] LABS: BUN/Creatinine Ratio 11.8; Bilirubin, Total 0.2 mg/dL (0.2-1.0); Total Protein 7.7 g/dL (6.4-8.2)
== END | disposition home or self-care (01) ==
LOC: LAB 14:22
PROVIDERS: ATTEND Nurse Practitioner
DX: M05.79 Rheumatoid arthritis with rheumatoid factor of multiple sites without organ or systems involvement (principal)
CPT/HCPCS: 36415; 80053; 81001; 85025; 87086

== ENCOUNTER → 2021-07-18 | Outpatient (CLI) | payer OTHER | END | disposition home or self-care (01) | LOC: LAB 13:07 | PROVIDERS: ATTEND Obstetrics & Gynecology | DX: N39.0 Urinary tract infection, site not specified (principal) | CPT/HCPCS: 87086; 87088; 87186 ==

== ENCOUNTER → 2021-07-23 | Outpatient (CLI) | payer OTHER ==
[2021-07-23 13:23] LABS: Basophils # (auto) 0 10 ^3/uL (0-0.2); Basophils % (auto) 0.2 % (0.0-2.0); Hemoglobin 11.9 g/dL (12.2-16.2); Lymphocytes # (auto) 1.1 10 ^3/uL (0.4-5.4); Mean Corpuscular Hgb Conc. 32.7 g/dL (32.0-36.0); Neutrophils # (auto) 5.2 10 ^3/uL (1.6-8.6); Red Blood Cells 4.46 10^6/uL (4.0-5.20); White Blood Cell 6.8 10^3/uL (4.4-10.8)
[2021-07-23 13:25] LABS: Eosinophils # (auto) 0 10 ^3/uL (0-0.8); Eosinophils % (auto) 0.7 % (0.0-7.0); Hematocrit 36.4 % (36.0-46.0); Lymphocytes % (auto) 16.9 % (10.0-50.0); Mean Corpuscular Hemoglobin 26.7 pg (28.0-32.0); Mean Corpuscular Volume 81.7 fL (80.0-100.0); Monocytes # (auto) 0.3 10 ^3/uL (0-1.3); Monocytes % (auto) 4.7 % (0.0-12.0); Neutrophils % (auto) 77.5 % (37.0-80.0); Red Cell Distribution Width 15.6 % (11.8-14.3)
[2021-07-23 15:12] LABS: Albumin 3.8 g/dL (3.4-5.0); Calcium 9.8 mg/dL (8.5-10.1); Potassium 4.1 mmol/L (3.5-5.1)
[2021-07-23 15:23] LABS: Thyroid Stimulating Hormone 0.62 uIU/mL (0.358-3.74)
[2021-07-23 15:34] LABS: BUN/Creatinine Ratio 17.4; Bilirubin, Total 0.4 mg/dL (0.2-1.0)
[2021-07-23 16:24] LABS: Hepatitis B Surface Antigen Negative (Negative)
[2021-07-23 16:29] LABS: Hepatitis C Antibody Negative (Negative)
[2021-07-23 16:30] LABS: Hepatitis B Core IgM Negative
[2021-07-23 16:33] LABS: Hepatitis A Ab IgM Negative
== END | disposition home or self-care (01) ==
LOC: LAB 12:58
PROVIDERS: ATTEND Internal Medicine
DX: C43.9 Malignant melanoma of skin, unspecified (principal); Z88.8 Allergy status to other drugs, medicaments and biological substances
CPT/HCPCS: 36415; 80053; 80074; 83615; 84436; 84443; 85025

== ENCOUNTER → 2021-08-24 | Outpatient (CLI) | payer OTHER | END | disposition home or self-care (01) | LOC: RT 08:17 | PROVIDERS: ATTEND Internal Medicine Pulmonary Disease | DX: J44.9 Chronic obstructive pulmonary disease, unspecified (principal); Z20.822 Contact with and (suspected) exposure to COVID-19 | CPT/HCPCS: 36415; 87426; 94060; 94727; 94729 ==

== ENCOUNTER → 2021-09-10 | Outpatient (CLI) | payer OTHER ==
[2021-09-10 15:27] LABS: Basophils # (auto) 0 10 ^3/uL (0-0.2); Basophils % (auto) 0.5 % (0.0-2.0); Eosinophils # (auto) 0 10 ^3/uL (0-0.8); Eosinophils % (auto) 0.6 % (0.0-7.0); Hematocrit 35.3 % (36.0-46.0); Hemoglobin 11.8 g/dL (12.2-16.2); Lymphocytes # (auto) 0.7 10 ^3/uL (0.4-5.4); Lymphocytes % (auto) 13.2 % (10.0-50.0); Mean Corpuscular Hemoglobin 28.5 pg (28.0-32.0); Mean Corpuscular Hgb Conc. 33.4 g/dL (32.0-36.0); Mean Corpuscular Volume 85.6 fL (80.0-100.0); Monocytes # (auto) 0.3 10 ^3/uL (0-1.3); Monocytes % (auto) 6.5 % (0.0-12.0); Neutrophils # (auto) 4.1 10 ^3/uL (1.6-8.6); Neutrophils % (auto) 79.2 % (37.0-80.0); Nucleated Red Blood Cells % 0.1 %; Red Blood Cells 4.13 10^6/uL (4.0-5.20); Red Cell Distribution Width 17.3 % (11.8-14.3); White Blood Cell 5.1 10^3/uL (4.4-10.8)
[2021-09-10 17:06] LABS: Thyroid Stimulating Hormone 0.25 uIU/mL (0.358-3.74)
[2021-09-10 17:07] LABS: Anion Gap 5 (5-15); Carbon Dioxide 31 mmol/L (21-32); Chloride 103 mmol/L (98-107); Potassium 4.5 mmol/L (3.5-5.1); Sodium 139 mmol/L (136-145)
[2021-09-10 17:08] LABS: Alanine Aminotransferase 19 U/L (13-56); Albumin 3.2 g/dL (3.4-5.0); Alkaline Phosphatase 62 U/L (45-117); Aspartate Aminotransferase 10 U/L (15-37); Bilirubin, Total 0.3 mg/dL (0.2-1.0); Blood Urea Nitrogen 19 mg/dL (7-18); Calcium 8.8 mg/dL (8.5-10.1); GFR African American 56 mL/min; GFR Non-African American 46 mL/min; Glucose 111 mg/dL (74-106); Total Protein 7.5 g/dL (6.4-8.2)
== END | disposition home or self-care (01) ==
LOC: LAB 15:04
PROVIDERS: ATTEND Internal Medicine
DX: C43.9 Malignant melanoma of skin, unspecified (principal); Z88.5 Allergy status to narcotic agent
CPT/HCPCS: 36415; 80053; 83615; 84436; 84443; 85025

== ENCOUNTER → 2021-09-28 | Outpatient (CLI) | payer OTHER ==
[2021-09-28 14:57] LABS: Basophils # (auto) 0 10 ^3/uL (0-0.2); Basophils % (auto) 0.3 % (0.0-2.0); Eosinophils # (auto) 0.1 10 ^3/uL (0-0.8); Eosinophils % (auto) 1.5 % (0.0-7.0); Hematocrit 35.8 % (36.0-46.0); Hemoglobin 11.5 g/dL (12.2-16.2); Lymphocytes # (auto) 0.6 10 ^3/uL (0.4-5.4); Lymphocytes % (auto) 15.1 % (10.0-50.0); Mean Corpuscular Hemoglobin 27.8 pg (28.0-32.0); Mean Corpuscular Hgb Conc. 32.1 g/dL (32.0-36.0); Mean Corpuscular Volume 86.7 fL (80.0-100.0); Monocytes # (auto) 0.4 10 ^3/uL (0-1.3); Monocytes % (auto) 9.7 % (0.0-12.0); Neutrophils # (auto) 2.9 10 ^3/uL (1.6-8.6); Neutrophils % (auto) 73.4 % (37.0-80.0); Nucleated Red Blood Cells % 0.1 %; Red Blood Cells 4.13 10^6/uL (4.0-5.20); Red Cell Distribution Width 16.6 % (11.8-14.3)
[2021-09-28 15:40] LABS: Albumin 3.6 g/dL (3.4-5.0); Calcium 9.3 mg/dL (8.5-10.1); Potassium 4.3 mmol/L (3.5-5.1)
[2021-09-28 15:44] LABS: Bilirubin, Total 0.5 mg/dL (0.2-1.0); Total Protein 7.6 g/dL (6.4-8.2)
== END | disposition home or self-care (01) ==
LOC: LAB 14:29
PROVIDERS: ATTEND Internal Medicine
DX: C43.9 Malignant melanoma of skin, unspecified (principal); Z88.5 Allergy status to narcotic agent
CPT/HCPCS: 36415; 80053; 83615; 84443; 85025

== ENCOUNTER → 2021-10-03 | Outpatient (CLI) | payer OTHER ==
[2021-10-03 14:26] LABS: Basophils # (auto) 0 10 ^3/uL (0-0.2); Basophils % (auto) 0.2 % (0.0-2.0); Eosinophils # (auto) 0.1 10 ^3/uL (0-0.8); Eosinophils % (auto) 2.1 % (0.0-7.0); Hematocrit 34.3 % (36.0-46.0); Hemoglobin 11.2 g/dL (12.2-16.2); Lymphocytes % (auto) 20.7 % (10.0-50.0); Mean Corpuscular Hemoglobin 28.3 pg (28.0-32.0); Mean Corpuscular Hgb Conc. 32.7 g/dL (32.0-36.0); Mean Corpuscular Volume 86.6 fL (80.0-100.0); Monocytes # (auto) 0.5 10 ^3/uL (0-1.3); Monocytes % (auto) 10.1 % (0.0-12.0); Neutrophils # (auto) 3.3 10 ^3/uL (1.6-8.6); Neutrophils % (auto) 66.9 % (37.0-80.0); Nucleated Red Blood Cells % 0.1 %; Red Blood Cells 3.97 10^6/uL (4.0-5.20); Red Cell Distribution Width 16.1 % (11.8-14.3); White Blood Cell 4.9 10^3/uL (4.4-10.8)
[2021-10-03 14:55] LABS: Albumin 3.4 g/dL (3.4-5.0); Calcium 8.8 mg/dL (8.5-10.1); Potassium 4.1 mmol/L (3.5-5.1)
[2021-10-03 15:00] LABS: BUN/Creatinine Ratio 15.2; Bilirubin, Total 0.4 mg/dL (0.2-1.0); Total Protein 7.4 g/dL (6.4-8.2)
== END | disposition home or self-care (01) ==
LOC: LAB 14:11
PROVIDERS: ATTEND Internal Medicine
DX: C43.9 Malignant melanoma of skin, unspecified (principal)
CPT/HCPCS: 36415; 80053; 83615; 85025

== ENCOUNTER → 2021-11-06 | Outpatient (CLI) | payer OTHER ==
[2021-11-06 10:12] LABS: Basophils # (auto) 0 10 ^3/uL (0-0.2); Basophils % (auto) 0.2 % (0.0-2.0); Eosinophils # (auto) 0.1 10 ^3/uL (0-0.8); Eosinophils % (auto) 2.8 % (0.0-7.0); Hematocrit 35.8 % (36.0-46.0); Hemoglobin 12.3 g/dL (12.2-16.2); Lymphocytes # (auto) 1.4 10 ^3/uL (0.4-5.4); Lymphocytes % (auto) 26.2 % (10.0-50.0); Mean Corpuscular Hemoglobin 29.1 pg (28.0-32.0); Mean Corpuscular Hgb Conc. 34.2 g/dL (32.0-36.0); Mean Corpuscular Volume 85.1 fL (80.0-100.0); Monocytes # (auto) 0.5 10 ^3/uL (0-1.3); Monocytes % (auto) 9.9 % (0.0-12.0); Neutrophils # (auto) 3.2 10 ^3/uL (1.6-8.6); Neutrophils % (auto) 60.9 % (37.0-80.0); Nucleated Red Blood Cells % 0.1 %; Red Blood Cells 4.21 10^6/uL (4.0-5.20); Red Cell Distribution Width 14.1 % (11.8-14.3); White Blood Cell 5.3 10^3/uL (4.4-10.8)
[2021-11-06 10:41] LABS: Albumin 3.5 g/dL (3.4-5.0); Calcium 10.2 mg/dL (8.5-10.1); Potassium 4.2 mmol/L (3.5-5.1)
[2021-11-06 10:43] LABS: BUN/Creatinine Ratio 16.1
[2021-11-06 10:48] LABS: Bilirubin, Total 0.3 mg/dL (0.2-1.0)
[2021-11-06 11:10] LABS: Thyroid Stimulating Hormone 1.59 uIU/mL (0.358-3.74)
== END | disposition home or self-care (01) ==
LOC: LAB 09:17
PROVIDERS: ATTEND Internal Medicine
DX: C43.9 Malignant melanoma of skin, unspecified (principal)
CPT/HCPCS: 36415; 80053; 83615; 84439; 84443; 85025

== ENCOUNTER → 2021-11-23 | Outpatient (CLI) | payer OTHER ==
[2021-11-23 11:51] LABS: Basophils # (auto) 0 10 ^3/uL (0-0.2); Basophils % (auto) 0.2 % (0.0-2.0); Eosinophils # (auto) 0.1 10 ^3/uL (0-0.8); Eosinophils % (auto) 2.5 % (0.0-7.0); Hematocrit 36.4 % (36.0-46.0); Hemoglobin 12.5 g/dL (12.2-16.2); Lymphocytes # (auto) 1.4 10 ^3/uL (0.4-5.4); Lymphocytes % (auto) 23.7 % (10.0-50.0); Mean Corpuscular Hemoglobin 29.1 pg (28.0-32.0); Mean Corpuscular Hgb Conc. 34.2 g/dL (32.0-36.0); Mean Corpuscular Volume 85.1 fL (80.0-100.0); Monocytes # (auto) 0.4 10 ^3/uL (0-1.3); Monocytes % (auto) 7.8 % (0.0-12.0); Neutrophils # (auto) 3.8 10 ^3/uL (1.6-8.6); Neutrophils % (auto) 65.8 % (37.0-80.0); Nucleated Red Blood Cells % 0.2 %; Red Blood Cells 4.28 10^6/uL (4.0-5.20); Red Cell Distribution Width 14.4 % (11.8-14.3); White Blood Cell 5.7 10^3/uL (4.4-10.8)
[2021-11-23 12:10] LABS: Albumin 3.6 g/dL (3.4-5.0); Calcium 9.6 mg/dL (8.5-10.1)
[2021-11-23 12:15] LABS: BUN/Creatinine Ratio 18.2; Bilirubin, Total 0.3 mg/dL (0.2-1.0); Total Protein 8.2 g/dL (6.4-8.2)
== END | disposition home or self-care (01) ==
LOC: LAB 09:37
PROVIDERS: ATTEND Internal Medicine
DX: C43.9 Malignant melanoma of skin, unspecified (principal)
CPT/HCPCS: 36415; 80053; 83615; 85025

== ENCOUNTER → 2021-11-30 | Outpatient (CLI) | payer OTHER ==
[2021-11-30 10:53] LABS: Basophils # (auto) 0 10 ^3/uL (0-0.2); Basophils % (auto) 0.1 % (0.0-2.0); Eosinophils # (auto) 0.1 10 ^3/uL (0-0.8); Eosinophils % (auto) 1.2 % (0.0-7.0); Hematocrit 36.5 % (36.0-46.0); Hemoglobin 12.6 g/dL (12.2-16.2); Lymphocytes # (auto) 0.9 10 ^3/uL (0.4-5.4); Lymphocytes % (auto) 12.3 % (10.0-50.0); Mean Corpuscular Hemoglobin 29.4 pg (28.0-32.0); Mean Corpuscular Hgb Conc. 34.6 g/dL (32.0-36.0); Mean Corpuscular Volume 85.1 fL (80.0-100.0); Monocytes # (auto) 0.5 10 ^3/uL (0-1.3); Monocytes % (auto) 6.9 % (0.0-12.0); Neutrophils # (auto) 5.8 10 ^3/uL (1.6-8.6); Neutrophils % (auto) 79.5 % (37.0-80.0); Nucleated Red Blood Cells % 0.1 %; Red Blood Cells 4.29 10^6/uL (4.0-5.20); Red Cell Distribution Width 14.4 % (11.8-14.3); White Blood Cell 7.3 10^3/uL (4.4-10.8)
[2021-11-30 10:55] LABS: Albumin 3.6 g/dL (3.4-5.0); Calcium 9.3 mg/dL (8.5-10.1); Potassium 4.8 mmol/L (3.5-5.1)
[2021-11-30 10:59] LABS: BUN/Creatinine Ratio 19.6; Bilirubin, Total 0.2 mg/dL (0.2-1.0); Total Protein 7.8 g/dL (6.4-8.2)
== END | disposition home or self-care (01) ==
LOC: LAB 09:25
PROVIDERS: ATTEND Internal Medicine
DX: C43.9 Malignant melanoma of skin, unspecified (principal)
CPT/HCPCS: 36415; 80053; 83615; 85025

== ENCOUNTER 2022-01-25 23:11 | Inpatient (IN) | payer OTHER ==
[~2022-01-25] VITALS: Ht 134.6 cm; Wt 61.4 kg
[2022-01-26 01:11] LABS: Basophils # (auto) 0.1 10 ^3/uL (0-0.2); Basophils % (auto) 1.2 % (0.0-2.0); Eosinophils # (auto) 0.2 10 ^3/uL (0-0.8); Eosinophils % (auto) 1.6 % (0.0-7.0); Hematocrit 37.1 % (36.0-46.0); Hemoglobin 12.8 g/dL (12.2-16.2); Mean Corpuscular Hgb Conc. 34.6 g/dL (32.0-36.0); Mean Corpuscular Volume 83.8 fL (80.0-100.0); Monocytes # (auto) 0.4 10 ^3/uL (0-1.3); Monocytes % (auto) 4.4 % (0.0-12.0); Neutrophils % (auto) 82.8 % (37.0-80.0); Nucleated Red Blood Cells % 1.1 %; Red Blood Cells 4.42 10^6/uL (4.0-5.20); Red Cell Distribution Width 15.4 % (11.8-14.3); White Blood Cell 9.7 10^3/uL (4.4-10.8)
[2022-01-26] MEDS ORDERED: ACETAMINOPHEN 325 MG TAB PO ONE (01:30)
[2022-01-26 01:43] LABS: Albumin 3.1 g/dL (3.4-5.0); BUN/Creatinine Ratio 14.7; Calcium 10.9 mg/dL (8.5-10.1)
[2022-01-26 01:46] LABS: Bilirubin, Total 0.8 mg/dL (0.2-1.0); Total Protein 7.8 g/dL (6.4-8.2)
[2022-01-26] MEDS ORDERED: ASPirin 325 MG TAB PO STA (02:07)
[2022-01-26] MEDS ORDERED: CLOPIDOGREL BISULFATE 75 MG TAB PO ONE (02:15)
[2022-01-26] MEDS ORDERED: HYDR25TA87 PO (03:38)
[2022-01-26] MEDS ORDERED: HEPARIN SODIUM (PORCINE) 5000 UNITS/ML 1ML VIAL IV ONE (04:45)
[2022-01-26] MEDS ORDERED: HEPARIN DRIP/D5W 100UNITS/ML 250 ML IV SCH (04:45)
[2022-01-26 05:08] LABS: Cholesterol 135 mg/dL (< 200); HDL Cholesterol 24 mg/dL (40-59); LDL Cholesterol 89 mg/dL (< 100); Triglycerides 199 mg/dL (< 150)
[2022-01-26 06:05] LABS: INR 1.22 (0.9-1.15); Partial Thromboplastin Time 31.9 sec (23.6-33.0)
[2022-01-26] MEDS ORDERED: NITROGLYCERIN 0.4 MG SL TAB SL PRN (06:15)
[2022-01-26] MEDS ORDERED: SODIUM CHLORIDE 0.9% 1,000 ML IV SCH (06:15)
[2022-01-26] MEDS ORDERED: MORPHINE SULFATE INJECTION 2 MG/ML SYRG IV PRN (06:15)
[2022-01-26] MEDS ORDERED: SODIUM CHLORIDE 0.9% 1,000 ML IV ONE (06:30)
[2022-01-26 09:45] VITALS: BP 115/54
[2022-01-26 10:45] VITALS: BP 115/54
[2022-01-26] MEDS: SERTRALINE HCL 50 MG TAB PO SCH (11:51)
[2022-01-26] MEDS: ATENOLOL 50 MG TAB PO SCH ×2 (11:52→20:49)
[2022-01-26] MEDS: cloNIDine HCL 0.1 MG TAB PO SCH ×2 (11:52→21:43)
[2022-01-26] MEDS: FOLIC ACID 1 MG TAB PO SCH (11:52)
[2022-01-26 12:43] LABS: Basophils # (auto) 0 10 ^3/uL (0-0.2); Basophils % (auto) 0.5 % (0.0-2.0); Eosinophils # (auto) 0.2 10 ^3/uL (0-0.8); Eosinophils % (auto) 2.4 % (0.0-7.0); Hematocrit 35.8 % (36.0-46.0); Hemoglobin 12.3 g/dL (12.2-16.2); Lymphocytes % (auto) 13.2 % (10.0-50.0); Mean Corpuscular Hemoglobin 29.1 pg (28.0-32.0); Mean Corpuscular Hgb Conc. 34.4 g/dL (32.0-36.0); Mean Corpuscular Volume 84.7 fL (80.0-100.0); Monocytes # (auto) 0.4 10 ^3/uL (0-1.3); Monocytes % (auto) 4.7 % (0.0-12.0); Neutrophils % (auto) 79.2 % (37.0-80.0); Nucleated Red Blood Cells % 0.2 %; Red Blood Cells 4.23 10^6/uL (4.0-5.20); Red Cell Distribution Width 14.9 % (11.8-14.3); White Blood Cell 7.5 10^3/uL (4.4-10.8)
[2022-01-26 12:51] LABS: INR 1.16 (0.9-1.15); Partial Thromboplastin Time 42.5 sec (23.6-33.0)
[2022-01-26 12:52] LABS: BUN/Creatinine Ratio 15.8; Calcium 10.2 mg/dL (8.5-10.1); Potassium 3.8 mmol/L (3.5-5.1)
[2022-01-26 12:55] LABS: Bilirubin, Total 0.9 mg/dL (0.2-1.0); Total Protein 7.7 g/dL (6.4-8.2)
[2022-01-26 13:00] VITALS: BP 128/56
[2022-01-26] MEDS: hydrALAZINE HCL 25 MG TAB PO SCH ×2 (14:00→21:43)
[2022-01-26] MEDS: SODIUM CHLOR 0.9% PF (SALINE LOCK) 10ML VIAL/SYR IV SCH ×2 (15:29→21:44)
[2022-01-26 17:00] VITALS: BP 101/44
[2022-01-26] MEDS: ACETAMINOPHEN 325 MG TAB PO PRN (20:48)
[2022-01-26] MEDS ORDERED: HYDROmorphone HCL 2 MG/ML VL IV PRN (23:30)
[2022-01-27 04:58] VITALS: BP 126/58
[2022-01-27] MEDS: hydrALAZINE HCL 25 MG TAB PO SCH ×3 (05:36→22:04)
[2022-01-27] MEDS: SODIUM CHLOR 0.9% PF (SALINE LOCK) 10ML VIAL/SYR IV SCH ×3 (05:37→22:07)
[2022-01-27 06:03] LABS: Hemoglobin 12.1 g/dL (12.2-16.2); Mean Corpuscular Hemoglobin 29.5 pg (28.0-32.0); Mean Corpuscular Hgb Conc. 34.6 g/dL (32.0-36.0); Mean Corpuscular Volume 85.4 fL (80.0-100.0); Red Blood Cells 4.09 10^6/uL (4.0-5.20); Red Cell Distribution Width 15.2 % (11.8-14.3); White Blood Cell 7.2 10^3/uL (4.4-10.8)
[2022-01-27 06:16] LABS: BUN/Creatinine Ratio 21.3; Calcium 9.7 mg/dL (8.5-10.1); Potassium 4.1 mmol/L (3.5-5.1)
[2022-01-27 09:00] VITALS: BP 137/64
[2022-01-27] MEDS: ATENOLOL 50 MG TAB PO SCH ×2 (09:27→22:00)
[2022-01-27] MEDS: cloNIDine HCL 0.1 MG TAB PO SCH ×2 (09:27→22:05)
[2022-01-27] MEDS: FOLIC ACID 1 MG TAB PO SCH (09:27)
[2022-01-27] MEDS: SERTRALINE HCL 50 MG TAB PO SCH (09:28)
[2022-01-27 13:00] VITALS: BP 95/50
[2022-01-27 16:21] LABS: INR 1.16 (0.9-1.15)
[2022-01-27 20:00] VITALS: BP 118/51
[2022-01-27 21:16] LABS: Urine Bacteria FEW /hpf (None Seen); Urine Blood Negative /uL (Negative); Urine Hyaline Cast FEW /lpf (0 - 2); Urine Specific Gravity 1.015 (1.001-1.035); Urine WBC 20 /hpf (0 - 5)
[2022-01-27 21:51] LABS: Protein, Urine 26.3 mg/dL (0.0-11.9)
[2022-01-28] VITALS (7 sets, daily range): BP systolic 92–118; BP diastolic 32–61
[2022-01-28] MEDS: hydrALAZINE HCL 25 MG TAB PO SCH ×3 (06:00→22:00)
[2022-01-28] MEDS: SODIUM CHLOR 0.9% PF (SALINE LOCK) 10ML VIAL/SYR IV SCH ×3 (06:01→23:01)
[2022-01-28] MEDS: FOLIC ACID 1 MG TAB PO SCH (09:14)
[2022-01-28] MEDS: cloNIDine HCL 0.1 MG TAB PO SCH ×2 (09:14→22:00)
[2022-01-28] MEDS: SERTRALINE HCL 50 MG TAB PO SCH (09:14)
[2022-01-28] MEDS: ATENOLOL 50 MG TAB PO SCH ×2 (09:15→22:00)
[2022-01-28] MEDS: ONDANSETRON ODT 4 MG TAB PO PRN (13:18)
[2022-01-28] MEDS: ACETAMINOPHEN 325 MG TAB PO PRN (13:18)
[2022-01-28 14:23] LABS: BUN/Creatinine Ratio 23.3; Calcium 10.4 mg/dL (8.5-10.1); Potassium 4.3 mmol/L (3.5-5.1)
[2022-01-28] MEDS: SODIUM CHLORIDE 0.9% 1,000 ML IV SCH (15:04)
[2022-01-28] MEDS: SUCRALFATE 1 GM/10 ML ORAL SUSP PO SCH ×2 (17:34→23:01)
[2022-01-28] MEDS: Ensure HIGH Protein Chocolate 8oz Bottle PO SCH (18:38)
[2022-01-28] MEDS: PANTOPRAZOLE 40 MG/10 ML VIAL INJ IV SCH (23:01)
[2022-01-29] MEDS: SODIUM CHLORIDE 0.9% 1,000 ML IV SCH (03:05)
[2022-01-29 05:00] VITALS: BP 96/29
[2022-01-29] MEDS: hydrALAZINE HCL 25 MG TAB PO SCH ×3 (06:00→22:00)
[2022-01-29 06:01] LABS: Hematocrit 30.5 % (36.0-46.0); Hemoglobin 10.7 g/dL (12.2-16.2); Mean Corpuscular Hemoglobin 29.4 pg (28.0-32.0); Mean Corpuscular Hgb Conc. 34.9 g/dL (32.0-36.0); Mean Corpuscular Volume 84.1 fL (80.0-100.0); Red Blood Cells 3.63 10^6/uL (4.0-5.20); Red Cell Distribution Width 14.8 % (11.8-14.3); White Blood Cell 5.2 10^3/uL (4.4-10.8)
[2022-01-29 06:12] LABS: INR 1.13 (0.9-1.15)
[2022-01-29 06:14] LABS: Calcium 9.4 mg/dL (8.5-10.1); Potassium 4.3 mmol/L (3.5-5.1)
[2022-01-29] MEDS: SUCRALFATE 1 GM/10 ML ORAL SUSP PO SCH ×4 (06:43→21:55)
[2022-01-29] MEDS: SODIUM CHLOR 0.9% PF (SALINE LOCK) 10ML VIAL/SYR IV SCH ×3 (06:43→23:21)
[2022-01-29 08:00] VITALS: BP 98/55
[2022-01-29] MEDS: Ensure HIGH Protein Chocolate 8oz Bottle PO SCH ×2 (08:00→18:00)
[2022-01-29] MEDS ORDERED: CYANOCOBALAMIN (B-12) 1000 MCG/1 ML VIAL IM ONE (09:30)
[2022-01-29] MEDS: PANTOPRAZOLE 40 MG/10 ML VIAL INJ IV SCH ×2 (09:32→21:54)
[2022-01-29] MEDS: SERTRALINE HCL 50 MG TAB PO SCH (09:32)
[2022-01-29] MEDS: FOLIC ACID 1 MG TAB PO SCH (09:32)
[2022-01-29] MEDS: cloNIDine HCL 0.1 MG TAB PO SCH ×2 (09:58→22:00)
[2022-01-29] MEDS: ATENOLOL 50 MG TAB PO SCH ×2 (09:59→23:05)
[2022-01-29] MEDS: ONDANSETRON ODT 4 MG TAB PO PRN (10:17)
[2022-01-29 12:00] VITALS: BP 111/52
[2022-01-29 16:00] VITALS: BP 102/45
[2022-01-29 22:00] VITALS: BP_SYST 121; BP_SYST 128; BP_DIAS 45; BP_DIAS 76
[2022-01-30 05:00] VITALS: BP 108/48
[2022-01-30] MEDS: hydrALAZINE HCL 25 MG TAB PO SCH ×3 (05:52→22:00)
[2022-01-30] MEDS: SODIUM CHLOR 0.9% PF (SALINE LOCK) 10ML VIAL/SYR IV SCH ×3 (06:10→22:32)
[2022-01-30] MEDS: SUCRALFATE 1 GM/10 ML ORAL SUSP PO SCH ×4 (06:11→22:44)
[2022-01-30 06:55] LABS: Potassium 4.2 mmol/L (3.5-5.1)
[2022-01-30 07:10] LABS: BUN/Creatinine Ratio 18.6; Calcium 9.6 mg/dL (8.5-10.1)
[2022-01-30 09:00] VITALS: BP 115/48
[2022-01-30] MEDS: Ensure HIGH Protein Chocolate 8oz Bottle PO SCH ×2 (09:35→21:13)
[2022-01-30] MEDS: cloNIDine HCL 0.1 MG TAB PO SCH ×2 (10:00→22:00)
[2022-01-30] MEDS: SERTRALINE HCL 50 MG TAB PO SCH (10:42)
[2022-01-30] MEDS: PANTOPRAZOLE 40 MG/10 ML VIAL INJ IV SCH ×2 (10:42→22:32)
[2022-01-30] MEDS: FOLIC ACID 1 MG TAB PO SCH (10:43)
[2022-01-30] MEDS: ATENOLOL 50 MG TAB PO SCH ×2 (10:46→22:00)
[2022-01-30 12:00] VITALS: BP 113/44
[2022-01-30] MEDS: ONDANSETRON ODT 4 MG TAB PO PRN (12:26)
[2022-01-30] MEDS: oxyCODONE HCL 5MG TAB PO PRN (15:26)
[2022-01-30 22:00] VITALS: BP 103/45
[2022-01-30] MEDS: ACETAMINOPHEN 325 MG TAB PO PRN (22:33)
[2022-01-31] MEDS: oxyCODONE HCL 5MG TAB PO PRN (01:06)
[2022-01-31 05:00] VITALS: BP 96/38
[2022-01-31] MEDS: hydrALAZINE HCL 25 MG TAB PO SCH (06:00)
[2022-01-31] MEDS: SODIUM CHLOR 0.9% PF (SALINE LOCK) 10ML VIAL/SYR IV SCH (06:37)
[2022-01-31] MEDS: SUCRALFATE 1 GM/10 ML ORAL SUSP PO SCH ×2 (07:00→11:30)
[2022-01-31] MEDS: Ensure HIGH Protein Chocolate 8oz Bottle PO SCH (08:00)
[2022-01-31 09:00] VITALS: BP 116/42
[2022-01-31] MEDS: FOLIC ACID 1 MG TAB PO SCH ×2 (09:21→10:00)
[2022-01-31] MEDS: SERTRALINE HCL 50 MG TAB PO SCH ×2 (09:21→10:00)
[2022-01-31] MEDS: PANTOPRAZOLE 40 MG/10 ML VIAL INJ IV SCH (09:21)
[2022-01-31] MEDS: ATENOLOL 50 MG TAB PO SCH (09:22)
[2022-01-31] MEDS: cloNIDine HCL 0.1 MG TAB PO SCH (09:22)
[2022-01-31 13:07] VITALS: BP 106/34
[2022-01-31 15:26] VITALS: BP 100/34
== END 2022-01-31 16:22 | disposition home health service (06) | DRG 280 ==
LOC: EDBD 23:11 → ER 23:11 → TELE 01-26 06:05 → TELE-WESTW 01-26 09:36 → WEST WING 01-29 22:07
PROVIDERS: ADMIT Internal Medicine; ATTEND Internal Medicine
DX: I21.4 Non-ST elevation (NSTEMI) myocardial infarction (principal); N17.0 Acute kidney failure with tubular necrosis; J96.01 Acute respiratory failure with hypoxia; E44.0 Moderate protein-calorie malnutrition; J84.9 Interstitial pulmonary disease, unspecified; C43.9 Malignant melanoma of skin, unspecified; N18.32 Chronic kidney disease, stage 3b; M06.9 Rheumatoid arthritis, unspecified; E78.5 Hyperlipidemia, unspecified; Z20.822 Contact with and (suspected) exposure to COVID-19; F41.9 Anxiety disorder, unspecified; H91.90 Unspecified hearing loss, unspecified ear; Z92.21 Personal history of antineoplastic chemotherapy; I12.9 Hypertensive chronic kidney disease with stage 1 through stage 4 chronic kidney disease, or unspecified chronic kidney disease; J43.9 Emphysema, unspecified; Z79.899 Other long term (current) drug therapy; Z82.49 Family history of ischemic heart disease and other diseases of the circulatory system; Z85.820 Personal history of malignant melanoma of skin; Z87.891 Personal history of nicotine dependence; Z90.710 Acquired absence of both cervix and uterus; Z88.8 Allergy status to other drugs, medicaments and biological substances; Z90.49 Acquired absence of other specified parts of digestive tract; Z88.5 Allergy status to narcotic agent
CPT/HCPCS: 36415; 36600; 71045; 71250; 76775; 80048; 80053; 80061; 81001; 82270; 82550; 82570; 82805; 83605; 83735; 83880; 83935; 84156; 84300; 84443; 84484; 84550; 85025; 85027; 85610; 85730; 93005; 93306; 96365; 96375; 97110; 97163; 97530; C9113; G0378; Q0162

== ENCOUNTER → 2022-02-28 | Outpatient (CLI) | payer OTHER ==
[~2022-02-28] MED LIST changes: -CIPR-173 PO; -LIS20T PO
[2022-02-28 10:19] LABS: Basophils # (auto) 0.2 10 ^3/uL (0-0.2); Basophils % (auto) 1.7 % (0.0-2.0); Eosinophils # (auto) 0.3 10 ^3/uL (0-0.8); Eosinophils % (auto) 3.3 % (0.0-7.0); Hematocrit 39.4 % (36.0-46.0); Hemoglobin 13.3 g/dL (12.2-16.2); Lymphocytes # (auto) 1.3 10 ^3/uL (0.4-5.4); Lymphocytes % (auto) 14.2 % (10.0-50.0); Mean Corpuscular Hemoglobin 29.5 pg (28.0-32.0); Mean Corpuscular Hgb Conc. 33.7 g/dL (32.0-36.0); Mean Corpuscular Volume 87.3 fL (80.0-100.0); Monocytes # (auto) 0.5 10 ^3/uL (0-1.3); Monocytes % (auto) 5.9 % (0.0-12.0); Neutrophils # (auto) 6.8 10 ^3/uL (1.6-8.6); Neutrophils % (auto) 74.9 % (37.0-80.0); Nucleated Red Blood Cells % 0.1 %; Red Blood Cells 4.51 10^6/uL (4.0-5.20); Red Cell Distribution Width 15.5 % (11.8-14.3); White Blood Cell 9.1 10^3/uL (4.4-10.8)
[2022-02-28 10:45] LABS: Albumin 3.5 g/dL (3.4-5.0); Potassium 4.1 mmol/L (3.5-5.1)
[2022-02-28 10:48] LABS: Bilirubin, Total 0.5 mg/dL (0.2-1.0)
== END | disposition home or self-care (01) ==
LOC: LAB 10:00
PROVIDERS: ATTEND Internal Medicine
DX: C43.9 Malignant melanoma of skin, unspecified (principal)
CPT/HCPCS: 36415; 80053; 83615; 85025

== ENCOUNTER → 2022-05-28 | Outpatient (CLI) | payer OTHER ==
[2022-05-28 09:35] LABS: Basophils # (auto) 0 10 ^3/uL (0-0.2); Basophils % (auto) 0.2 % (0.0-2.0); Eosinophils # (auto) 0.1 10 ^3/uL (0-0.8); Eosinophils % (auto) 0.7 % (0.0-7.0); Hemoglobin 14.2 g/dL (12.2-16.2); Lymphocytes % (auto) 24.1 % (10.0-50.0); Mean Corpuscular Hemoglobin 30.8 pg (28.0-32.0); Mean Corpuscular Hgb Conc. 33.7 g/dL (32.0-36.0); Mean Corpuscular Volume 91.3 fL (80.0-100.0); Monocytes # (auto) 0.5 10 ^3/uL (0-1.3); Monocytes % (auto) 5.8 % (0.0-12.0); Neutrophils # (auto) 5.7 10 ^3/uL (1.6-8.6); Neutrophils % (auto) 69.2 % (37.0-80.0); Nucleated Red Blood Cells % 0.1 %; Red Cell Distribution Width 17.6 % (11.8-14.3); White Blood Cell 8.2 10^3/uL (4.4-10.8)
[2022-05-28 10:02] LABS: Potassium 3.9 mmol/L (3.5-5.1)
[2022-05-28 10:08] LABS: Albumin 3.9 g/dL (3.4-5.0); BUN/Creatinine Ratio 22.3; Calcium 9.3 mg/dL (8.5-10.1); Total Protein 7.3 g/dL (6.4-8.2)
[2022-05-28 10:12] LABS: Thyroid Stimulating Hormone 2.52 uIU/mL (0.358-3.74)
== END | disposition home or self-care (01) ==
LOC: LAB 09:02
PROVIDERS: ATTEND Internal Medicine
DX: C43.9 Malignant melanoma of skin, unspecified (principal)
CPT/HCPCS: 36415; 80053; 83615; 84436; 84443; 85025

== ENCOUNTER → 2022-06-28 | Outpatient (CLI) | payer OTHER ==
[2022-06-28 09:52] LABS: Basophils # (auto) 0 10 ^3/uL (0-0.2); Basophils % (auto) 0.3 % (0.0-2.0); Eosinophils # (auto) 0.1 10 ^3/uL (0-0.8); Eosinophils % (auto) 1.1 % (0.0-7.0); Hematocrit 41.2 % (36.0-46.0); Hemoglobin 13.7 g/dL (12.2-16.2); Lymphocytes # (auto) 1.5 10 ^3/uL (0.4-5.4); Lymphocytes % (auto) 24.2 % (10.0-50.0); Mean Corpuscular Hemoglobin 32.1 pg (28.0-32.0); Mean Corpuscular Hgb Conc. 33.3 g/dL (32.0-36.0); Mean Corpuscular Volume 96.4 fL (80.0-100.0); Monocytes # (auto) 0.5 10 ^3/uL (0-1.3); Monocytes % (auto) 8.7 % (0.0-12.0); Neutrophils # (auto) 3.9 10 ^3/uL (1.6-8.6); Neutrophils % (auto) 65.7 % (37.0-80.0); Nucleated Red Blood Cells % 0.2 %; Red Blood Cells 4.27 10^6/uL (4.0-5.20); Red Cell Distribution Width 16.5 % (11.8-14.3)
[2022-06-28 11:27] LABS: Albumin 4.2 g/dL (3.4-5.0); Magnesium 2.1 mg/dL (1.6-2.6); Potassium 3.9 mmol/L (3.5-5.1)
[2022-06-28 11:40] LABS: Thyroid Stimulating Hormone 2.55 uIU/mL (0.358-3.74)
[2022-06-28 12:10] LABS: BUN/Creatinine Ratio 16.5; Bilirubin, Total 0.7 mg/dL (0.2-1.0); Calcium 9.2 mg/dL (8.5-10.1); Total Protein 7.4 g/dL (6.4-8.2)
== END | disposition home or self-care (01) ==
LOC: LAB 09:22
PROVIDERS: ATTEND Internal Medicine
DX: C43.9 Malignant melanoma of skin, unspecified (principal)
CPT/HCPCS: 36415; 80053; 83615; 83735; 84436; 84443; 85025

== ENCOUNTER → 2022-11-04 | Outpatient (CLI) | payer OTHER ==
[2022-11-04 10:00] LABS: Basophils # (auto) 0 10 ^3/uL (0-0.2); Basophils % (auto) 0.2 % (0.0-2.0); Eosinophils # (auto) 0 10 ^3/uL (0-0.8); Eosinophils % (auto) 0.5 % (0.0-7.0); Hematocrit 41.4 % (36.0-46.0); Hemoglobin 14.3 g/dL (12.2-16.2); Lymphocytes % (auto) 17.1 % (10.0-50.0); Mean Corpuscular Hemoglobin 32.4 pg (28.0-32.0); Mean Corpuscular Hgb Conc. 34.6 g/dL (32.0-36.0); Mean Corpuscular Volume 93.7 fL (80.0-100.0); Monocytes # (auto) 0.3 10 ^3/uL (0-1.3); Monocytes % (auto) 5.8 % (0.0-12.0); Neutrophils # (auto) 4.5 10 ^3/uL (1.6-8.6); Neutrophils % (auto) 76.4 % (37.0-80.0); Nucleated Red Blood Cells % 0.3 %; Red Blood Cells 4.42 10^6/uL (4.0-5.20); Red Cell Distribution Width 14.7 % (11.8-14.3); White Blood Cell 5.9 10^3/uL (4.4-10.8)
[2022-11-04 10:15] LABS: Albumin 4.1 g/dL (3.4-5.0); Calcium 9.8 mg/dL (8.5-10.1); Potassium 3.9 mmol/L (3.5-5.1)
[2022-11-04 10:21] LABS: BUN/Creatinine Ratio 14.1; Bilirubin, Total 0.8 mg/dL (0.2-1.0); Total Protein 7.3 g/dL (6.4-8.2)
[2022-11-04 15:40] LABS: Urine Bacteria FEW /hpf (None Seen); Urine Blood Negative /uL (Negative); Urine Hyaline Cast FEW /lpf (0 - 2); Urine Mucus FEW (None Seen); Urine Specific Gravity 1.023 (1.001-1.035); Urine WBC 6 /hpf (0 - 5)
== END | disposition home or self-care (01) ==
LOC: LAB 09:32
PROVIDERS: ATTEND Internal Medicine
DX: I12.9 Hypertensive chronic kidney disease with stage 1 through stage 4 chronic kidney disease, or unspecified chronic kidney disease (principal); N18.32 Chronic kidney disease, stage 3b; M06.4 Inflammatory polyarthropathy
CPT/HCPCS: 36415; 80053; 80061; 81001; 83036; 84439; 84443; 85025

== ENCOUNTER → 2022-11-22 | Outpatient (CLI) | payer OTHER ==
[2022-11-22 12:18] LABS: Basophils # (auto) 0 10 ^3/uL (0-0.2); Basophils % (auto) 0.3 % (0.0-2.0); Eosinophils # (auto) 0.1 10 ^3/uL (0-0.8); Eosinophils % (auto) 1.4 % (0.0-7.0); Hematocrit 42.7 % (36.0-46.0); Hemoglobin 14.4 g/dL (12.2-16.2); Lymphocytes # (auto) 1.5 10 ^3/uL (0.4-5.4); Lymphocytes % (auto) 21.6 % (10.0-50.0); Mean Corpuscular Hemoglobin 31.8 pg (28.0-32.0); Mean Corpuscular Hgb Conc. 33.8 g/dL (32.0-36.0); Monocytes # (auto) 0.5 10 ^3/uL (0-1.3); Monocytes % (auto) 7.6 % (0.0-12.0); Neutrophils # (auto) 4.9 10 ^3/uL (1.6-8.6); Neutrophils % (auto) 69.1 % (37.0-80.0); Nucleated Red Blood Cells % 0.1 %; Red Blood Cells 4.54 10^6/uL (4.0-5.20); Red Cell Distribution Width 14.1 % (11.8-14.3); White Blood Cell 7.1 10^3/uL (4.4-10.8)
[2022-11-22 13:36] LABS: Albumin 3.9 g/dL (3.4-5.0); Calcium 9.3 mg/dL (8.5-10.1); Magnesium 2.2 mg/dL (1.6-2.6); Potassium 4.3 mmol/L (3.5-5.1)
[2022-11-22 13:38] LABS: Bilirubin, Total 0.5 mg/dL (0.2-1.0); Total Protein 7.6 g/dL (6.4-8.2)
[2022-11-22 14:00] LABS: Thyroid Stimulating Hormone 1.67 uIU/mL (0.358-3.74)
[2022-11-22 16:13] LABS: Urine Bacteria NONE SEEN /hpf (None Seen); Urine Blood Negative /uL (Negative); Urine Specific Gravity 1.023 (1.001-1.035); Urine WBC 6 /hpf (0 - 5)
== END | disposition home or self-care (01) ==
LOC: LAB 11:49
PROVIDERS: ATTEND Internal Medicine
DX: R82.90 Unspecified abnormal findings in urine (principal)
CPT/HCPCS: 36415; 80053; 81001; 82306; 83615; 83735; 84439; 84443; 85025

== ENCOUNTER → 2022-11-26 | Outpatient (CLI) | payer OTHER | END | disposition home or self-care (01) | LOC: LAB 15:31 | PROVIDERS: ATTEND Physician Assistant | DX: C43.9 Malignant melanoma of skin, unspecified (principal) | CPT/HCPCS: 87045; 87427 ==

== ENCOUNTER → 2022-12-20 | Outpatient (CLI) | payer OTHER ==
[2022-12-20 14:05] LABS: Basophils # (auto) 0 10 ^3/uL (0-0.2); Basophils % (auto) 0.1 % (0.0-2.0); Eosinophils # (auto) 0.1 10 ^3/uL (0-0.8); Eosinophils % (auto) 0.7 % (0.0-7.0); Hematocrit 42.7 % (36.0-46.0); Hemoglobin 14.2 g/dL (12.2-16.2); Lymphocytes % (auto) 12.9 % (10.0-50.0); Mean Corpuscular Hemoglobin 30.7 pg (28.0-32.0); Mean Corpuscular Hgb Conc. 33.2 g/dL (32.0-36.0); Mean Corpuscular Volume 92.5 fL (80.0-100.0); Monocytes # (auto) 0.4 10 ^3/uL (0-1.3); Monocytes % (auto) 5.4 % (0.0-12.0); Neutrophils # (auto) 6.1 10 ^3/uL (1.6-8.6); Neutrophils % (auto) 80.9 % (37.0-80.0); Nucleated Red Blood Cells % 0.9 %; Red Blood Cells 4.61 10^6/uL (4.0-5.20); Red Cell Distribution Width 12.5 % (11.8-14.3); White Blood Cell 7.5 10^3/uL (4.4-10.8)
[2022-12-20 14:33] LABS: Albumin 3.8 g/dL (3.4-5.0); BUN/Creatinine Ratio 17.5; Calcium 9.5 mg/dL (8.5-10.1); Magnesium 2.2 mg/dL (1.6-2.6); Potassium 3.8 mmol/L (3.5-5.1)
[2022-12-20 14:37] LABS: Bilirubin, Total 0.6 mg/dL (0.2-1.0); Total Protein 7.9 g/dL (6.4-8.2)
== END | disposition home or self-care (01) ==
LOC: LAB 13:28
PROVIDERS: ATTEND Internal Medicine
DX: C43.9 Malignant melanoma of skin, unspecified (principal)
CPT/HCPCS: 36415; 80053; 82306; 83001; 83615; 83735; 84436; 85025